=== PATIENT | female | born 1960 | race Caucasian/White ===

== ENCOUNTER 2016-04-22 16:23 | Outpatient (CLI) ==
[2016-04-07 13:44] VITALS: BMI 50.8
== END 2016-04-22 16:24 | disposition home or self-care (01) ==
LOC: CAR 16:23
PROVIDERS: ATTEND Nurse Practitioner Family
DX: G47.30 Sleep apnea, unspecified (principal)
CPT/HCPCS: 95811

== ENCOUNTER 2016-12-10 11:07 | Inpatient (IN) | payer OTHER ==
--- NOTE | 2016-12-10 11:21 | ED.PDOC ---
General ED Provider: Dr. VERITO FIERRO JR Chief Complaint: Chest Pain Stated Complaint: onset of left sided chest pain during nite--woke up sweating with pain to chest/left shoulder--pain lasted 4-5 hrs then went away--felt better and decided not to go to er--had seen md on thursday for upper resp sx and started on steroid and ear drops for ear infection--voice is hoarse--states lots of indigestion-[ End ]98.6 69 20 94% 138/84 08/20 took tramadol a nd ibuprofen Time Seen by Physician: 11:19 Mode of Arrival: Walk-In Information Source: Patient Exam Limitations: No limitations Primary Care Provider: AUBREY ESTEBAN Nursing and Triage Documentation Reviewed and Agree: No Review of Systems - Review Of Systems Constitutional: Reports: Diaphoresis, Malaise Eyes: Reports: No symptoms Ears, Nose, Mouth, Throat: Denies: Throat pain (HOARSE) Respiratory: Reports: No symptoms Cardiac: Reports: Chest pain GI: Reports: Abdominal pain (INDIGESTION) : Reports: No symptoms Musculoskeletal: Reports: Joint pain (SHOULDER) Skin: Reports: No symptoms Neurological: Reports: No symptoms Endocrine: Reports: No symptoms Hematologic/Lymphatic: Reports: No symptoms All Other Systems: Other Past Medical History - Past Medical History Endocrine: Reports: DM 2, Dyslipidemia Cardiovascular: Reports: Hypertension Respiratory: Reports: COPD Hematological: Reports: None Gastrointestinal: Reports: GERD Genitourinary: Reports: None Neuro/Psych: Reports: Anxiety, Depression Musculoskeletal: Reports: Arthritis Cancer: Reports: None Last Menstrual Period: menopause - Surgical History General Surgical History: Reports: Tubal ligation, (x2), Cholecystectomy, Other ( LASIK SURGERY, BULGING DISK IN BACK) - Family History Family History: Reports: Unknown - Social History Smoking Status: Former smoker Hx Substance Use: No Alcohol Screening: None Physical Exam - Physical Exam Appearance: Ill-appearing Interpretation - Radiology Interpretation Radiology Interpretation By: Radiologist Radiology Results: No acute changes Exam Interpreted: Portable CXR (prominent heart probable vac congestion) Critical Care Note - Critical Care Note Total Time (mins): 30 Course - Course Hematology/Chemistry: 12/10/16 11:51 12/10/16 11:51 Orders, Labs, Meds: Lab Review 12/10/16 12/10/16 11:20 11:51 WBC 10.64 H RBC 4.45 Hgb 13.4 Hct 39.9 MCV 89.7 MCH 30.1 MCHC 33.6 RDW Coeff of Taylor 13.3 Plt Count 242 Immature Gran % (Auto) 0.6 Neut % (Auto) 80.9 Lymph % (Auto) 13.2 Larue % (Auto) 3.9 Eos % (Auto) 0.8 Baso % (Auto) 0.6 Immature Gran # (Auto) 0.1 Neut # 8.6 H Lymph # 1.4 Larue # 0.4 Eos # 0.1 Baso # 0.1 D-Dimer (Manual) 896.55 Puncture Site Rr O2 Saturation 95.0 ABG pH 7.341 L ABG pCO2 47.7 H ABG pO2 81.0 L ABG HCO3 25.8 ABG Total CO2 27 ABG Base Excess 0 Flo Test + FiO2 % 21.0 Sodium 138 Potassium 4.3 Chloride 102 Carbon Dioxide 24 Anion Gap 16.3 BUN 19 H Creatinine 0.75 Estimated GFR (MDRD) 80.00 BUN/Creatinine Ratio 25.33 Glucose 136 H Calcium 9.5 Total Bilirubin 0.25 AST 24 ALT 31 Alkaline Phosphatase 72 Total Creatine Kinase 231 CK-MB (CK-2) 14.2 H* CK-MB (CK-2) % 6.71851 Troponin I < 0.0100 B-Natriuretic Peptide 26 Total Protein 7.7 Albumin 3.7 Globulin 4.0 Albumin/Globulin Ratio 0.93 Procalcitonin < 0.05 Orders Category Date Time Status ADMIT PATIENT INPATIENT .TO [facility] (MONITORED BED) ADMISSION 12/10/16 15: 33 Active ABG DRAW REQUEST Stat CARDIO 12/10/16 11:20 Completed EKG-(ED ONLY) Stat CARDIO 12/10/16 11:19 Completed EKG-(IP & OP ONLY) DAILY CARDIO 12/11/16 06:00 Ordered EKG-(IP & OP ONLY) DAILY CARDIO 12/12/16 06:00 Ordered EKG-(IP & OP ONLY) DAILY CARDIO 12/13/16 06:00 Ordered INTAKE & OUTPUT Q8HR CARE 12/10/16 15:34 Completed NPO REMINDER: IMAGING ONCE CARE 12/10/16 13:10 Active TELEMETRY MONITORING TELE CARE 12/10/16 15:37 Active VITAL SIGNS Q4HR CARE 12/10/16 15:33 Completed CARDIAC DIET DIETARY 12/10/16 Dinner Ordered ED DECISION SUPPORT ANALYST APPLIED .ONCE EMERGENCY 12/10/16 11:19 Active ED IV/MEDIPORT/POWERPORT .ONCE EMERGENCY 12/10/16 11:19 Active ABG Stat LAB 12/10/16 11:20 Completed B-TYPE NATRIURETIC PEPTIDE Stat LAB 12/10/16 11:51 Completed BLOOD CULTURE Stat LAB 12/10/16 11:51 Received CBC W/ AUTO DIFF DAILY@0600 LAB 12/11/16 06:00 Ordered CBC W/ AUTO DIFF DAILY@0600 LAB 12/12/16 06:00 Ordered CBC W/ AUTO DIFF DAILY@0600 LAB 12/13/16 06:00 Ordered CBC W/ AUTO DIFF DAILY@0600 LAB 12/14/16 06:00 Ordered CBC W/ AUTO DIFF DAILY@0600 LAB 12/15/16 06:00 Ordered CBC W/ AUTO DIFF DAILY@0600 LAB 12/16/16 06:00 Ordered CBC W/ AUTO DIFF DAILY@0600 LAB 12/17/16 06:00 Ordered CBC W/ AUTO DIFF DAILY@0600 LAB 12/18/16 06:00 Ordered CBC W/ AUTO DIFF DAILY@0600 LAB 12/19/16 06:00 Ordered CBC W/ AUTO DIFF DAILY@0600 LAB 12/20/16 06:00 Ordered CBC W/ AUTO DIFF DAILY@0600 LAB 12/21/16 06:00 Ordered CBC W/ AUTO DIFF DAILY@0600 LAB 12/22/16 06:00 Ordered CBC W/ AUTO DIFF DAILY@0600 LAB 12/23/16 06:00 Ordered CBC W/ AUTO DIFF DAILY@0600 LAB 12/24/16 06:00 Ordered CBC W/ AUTO DIFF DAILY@0600 LAB 12/25/16 06:00 Ordered CBC W/ AUTO DIFF DAILY@0600 LAB 12/26/16 06:00 Ordered CBC W/ AUTO DIFF DAILY@0600 LAB 12/27/16 06:00 Ordered CBC W/ AUTO DIFF DAILY@0600 LAB 12/28/16 06:00 Ordered CBC W/ AUTO DIFF DAILY@0600 LAB 12/29/16 06:00 Ordered CBC W/ AUTO DIFF DAILY@0600 LAB 12/30/16 06:00 Ordered CBC W/ AUTO DIFF Stat LAB 12/10/16 11:51 Completed COMPREHENSIVE METABOLIC PANEL DAILY@0600 LAB 12/11/16 06:00 Ordered COMPREHENSIVE METABOLIC PANEL DAILY@0600 LAB 12/12/16 06:00 Ordered COMPREHENSIVE METABOLIC PANEL DAILY@0600 LAB 12/13/16 06:00 Ordered COMPREHENSIVE METABOLIC PANEL DAILY@0600 LAB 12/14/16 06:00 Ordered COMPREHENSIVE METABOLIC PANEL DAILY@0600 LAB 12/15/16 06:00 Ordered COMPREHENSIVE METABOLIC PANEL DAILY@0600 LAB 12/16/16 06:00 Ordered COMPREHENSIVE METABOLIC PANEL DAILY@0600 LAB 12/17/16 06:00 Ordered COMPREHENSIVE METABOLIC PANEL DAILY@0600 LAB 12/18/16 06:00 Ordered COMPREHENSIVE METABOLIC PANEL DAILY@0600 LAB 12/19/16 06:00 Ordered COMPREHENSIVE METABOLIC PANEL DAILY@0600 LAB 12/20/16 06:00 Ordered COMPREHENSIVE METABOLIC PANEL DAILY@0600 LAB 12/21/16 06:00 Ordered COMPREHENSIVE METABOLIC PANEL DAILY@0600 LAB 12/22/16 06:00 Ordered COMPREHENSIVE METABOLIC PANEL DAILY@0600 LAB 12/23/16 06:00 Ordered COMPREHENSIVE METABOLIC PANEL DAILY@0600 LAB 12/24/16 06:00 Ordered COMPREHENSIVE METABOLIC PANEL DAILY@0600 LAB 12/25/16 06:00 Ordered COMPREHENSIVE METABOLIC PANEL DAILY@0600 LAB 12/26/16 06:00 Ordered COMPREHENSIVE METABOLIC PANEL DAILY@0600 LAB 12/27/16 06:00 Ordered COMPREHENSIVE METABOLIC PANEL DAILY@0600 LAB 12/28/16 06:00 Ordered COMPREHENSIVE METABOLIC PANEL DAILY@0600 LAB 12/29/16 06:00 Ordered COMPREHENSIVE METABOLIC PANEL DAILY@0600 LAB 12/30/16 06:00 Ordered COMPREHENSIVE METABOLIC PANEL Stat LAB 12/10/16 11:51 Completed CREATINE KINASE Q8H LAB 12/10/16 21:45 Ordered CREATINE KINASE Q8H LAB 12/11/16 05:45 Ordered CREATINE KINASE Stat LAB 12/10/16 11:51 Completed D-DIMER Stat LAB 12/10/16 11:51 Completed PROCALCITONIN Stat LAB 12/10/16 11:51 Completed SPUTUM CULTURE Stat LAB 12/10/16 11:21 Uncollected TROPONIN I Q8H LAB 12/10/16 21:45 Ordered TROPONIN I Q8H LAB 12/11/16 05:45 Ordered TROPONIN I Stat LAB 12/10/16 11:51 Completed 0.9 % Sodium Chloride [Saline Flush] MEDS 12/10/16 11:19 Active 1 syr IVF PRN PRN Acetaminophen [Tylenol] MEDS 12/10/16 15:33 Active 650 mg PO Q4H PRN Acetic Acid [Acetic Acid] MEDS 12/10/16 15:45 Active 4 drop OT DIRECTED Fluoxetine HCl [Prozac] MEDS 12/11/16 09:00 Active 20 mg PO DAILY Gabapentin [Neurontin] MEDS 12/10/16 17:00 Active 600 mg PO QID Lorazepam [Ativan] MEDS 12/10/16 21:00 Active 1 mg PO TID Montelukast Sodium [Singulair] MEDS 12/10/16 21:00 Active 10 mg PO BEDTIME Morphine Sulfate [Morphine 4 mg/ml Syringe] MEDS 12/10/16 11:42 Discontinued 4 mg IVP ONCE STA Multivitamin MEDS 12/11/16 09:00 Active 1 cap PO DAILY Ondansetron HCl/Pf [Zofran 4 mg/2 ml] MEDS 12/10/16 11:42 Discontinued 4 mg IVP ONCE STA Prednisone MEDS 12/11/16 08:00 Active 40 mg PO DAILYWM Ranitidine HCl [Zantac] MEDS 12/10/16 17:00 Active 150 mg PO BIDAC Sodium Chloride 0.9% [Sodium Chloride] 1,000 ml MEDS 12/10/16 16:00 Active IV 75 mls/hr Tramadol HCl [Ultram] MEDS 12/10/16 15:37 Active 100 mg PO Q6H PRN RESUSCITATION STATUS Routine OTHERS 12/10/16 15:33 Ordered CHEST, 1V AP ONLY Stat RADS 12/10/16 11:[address] CHEST PE PROTOCOL Stat RADS 12/10/16 13:09 Completed Medications Generic Name Dose Route Start Last Admin Trade Name Freq PRN Reason Stop Dose Admin Acetaminophen 650 mg 12/10/16 15:33 Tylenol PO Q4H PRN Mild Pain Fluoxetine HCl 20 mg 12/11/16 09:00 Prozac PO DAILY JIMENEZ Furosemide 40 mg 12/11/16 06:30 Lasix Tab PO QDAC JIMENEZ Gabapentin 600 mg 12/10/16 17:00 12/10/16 20:20 Neurontin PO 600 mg QID JIMENEZ Administration HCTZ/Losartan Potassium 2 tab 12/11/16 09:00 Hyzaar 50-12.5 Mg Tab PO DAILY JIMENEZ Sodium Chloride 1,000 mls @ 75 mls/hr 12/10/16 16:00 12/10/16 17:51 Sodium Chloride IV 75 mls/hr .[id number] JIMENEZ Administration Ibuprofen 800 mg 12/10/16 17:30 12/10/16 18:38 Motrin PO 800 mg TIDWM JIMENEZ Administration Loratadine 10 mg 12/10/16 16:39 Claritin PO DAILY PRN ALLERGIES Lorazepam 1 mg 12/10/16 21:00 12/10/16 20:20 Ativan PO 1 mg TID JIMENEZ Administration Metoprolol Succinate 100 mg 12/11/16 09:00 Toprol Xl PO DAILY [facility] Montelukast Sodium 10 mg 12/10/16 21:00 12/10/16 20:24 Singulair PO Not Given BEDTIME [facility], [facility] Multivitamins 1 cap 12/11/16 09:00 Multivitamin PO DAILY [facility], [facility] Non-Formulary Medication 4 drop 12/10/16 15:45 Acetic Acid [Acetic Acid] OT DIRECTED [facility] Prednisone 40 mg 12/11/16 08:00 Prednisone PO DAILYWM [facility] Quetiapine Fumarate 300 mg 12/10/16 21:00 12/10/16 20:20 Seroquel PO 300 mg BEDTIME JIMENEZ Administration Ranitidine HCl 150 mg 12/10/16 17:00 12/10/16 18:02 Zantac PO 150 mg BIDAC JIMENEZ Administration Sodium Chloride 1 syr 12/10/16 11:19 12/10/16 12:26 Saline Flush IVF 1 syr PRN PRN Administration To flush IV Topiramate 25 mg 12/11/16 09:00 Topamax PO DAILY [facility] Tramadol HCl 100 mg 12/10/16 15:37 Ultram PO Q6H PRN pain Discontinued Medications Generic Name Dose Route Start Last Admin Trade Name Freq PRN Reason Stop Dose Admin Morphine Sulfate 4 mg 12/10/16 11:42 12/10/16 12:29 Morphine 4 Mg/Ml Syringe IVP 12/10/16 11:43 4 mg ONCE STA Administration Ondansetron HCl 4 mg 12/10/16 11:42 12/10/16 12:27 Zofran 4 Mg/2 Ml IVP 12/10/16 11:43 4 mg ONCE STA Administration Vital Signs: Temp Pulse Resp BP Pulse Ox 12/10/16 11:07 98.6 F 69 20 138/84 94 L SRINIVASA Risk Score SRINIVASA Risk Score: Risk Score Odds of by 30D 0 0.1 (0.1-0.2) 1 0.3 (0.2-0.3) 2 0.4 (0.3-0.5) 3 0.7 (0.6-0.9) 4 1.2 (1.0-1.5) 5 2.2 (1.9-2.6) 6 3.0 (2.5-3.6) 7 4.8 (3.8-6.1) Departure - Departure Time of Disposition: 17:00 Disposition: ADMITTED INPATIENT Discharge Problem: Chest pain Condition: Stable Pt referred to PMD for follow-up: No (HOSPITALIST) Allergies/Adverse Reactions: Allergies Latex, Natural Rubber Adverse Reaction (Verified 12/10/16 11:18) metformin Adverse Reaction (Verified 12/10/16 11:19) Penicillins Adverse Reaction (Verified 12/10/16 11:18) Home Medications: Ambulatory Orders Fluoxetine HCl [Prozac] 20 mg PO DAILY 08/10/13 Gabapentin 600 mg PO QID 08/10/13 Ibuprofen 800 mg PO TID 08/10/13 Losartan/Hydrochlorothiazide [Losartan-Hctz 100-25 mg Tab] 1 each PO DAILY 08/10 Metoprolol Succinate 100 mg PO DAILY 08/10/13 Multivitamin 1 cap PO DAILY 08/10/13 Quetiapine Fumarate [Seroquel Xr] 300 mg PO BEDTIME 08/10/13 Ranitidine HCl [Zantac] 150 mg PO BIDAC 08/10/13 Tramadol HCl [Ultram] 100 mg PO Q6H 08/10/13 Furosemide [Lasix] 40 mg PO DAILY 04/07/16 Lorazepam 1 mg PO TID 04/07/16 Montelukast Sodium [Singulair] 10 mg PO BEDTIME 04/07/16 Topiramate [Topamax] 25 mg PO DAILY 04/07/16 Acetic Acid 4 drop OT DIRECTED 12/10/16 Loratadine 10 mg PO DIRECTED 12/10/16 Prednisone 40 mg PO DAILYWM 12/10/16
[2016-12-10] MEDS ORDERED: ZOFRAN 4 MG/2 ML IVP STA (11:42)
[2016-12-10] MEDS ORDERED: MORPHINE 4 MG/ML SYRINGE IVP STA (11:42)
[2016-12-10 11:46] LABS: ABG BASE EXCESS 0 (-2.0-2.0); ABG HCO3 25.8 (22.0-26.0); ABG PCO2 47.7 mmHg (35-45); ABG PH 7.341 (7.35-7.45); ABG TCO2 27 (22.0-28.0)
[2016-12-10 12:00] LABS: BASOPHILS # (AUTO) 0.1 K/uL (0-0.2); BASOPHILS % (AUTO) 0.6 % (0.0-3.0); EOSINOPHILS # (AUTO) 0.1 K/ul (0.0-0.7); EOSINOPHILS % (AUTO) 0.8 % (0.0-7.0); HEMATOCRIT 39.9 % (37.0-47.0); HEMOGLOBIN 13.4 g/dl (12.0-16.0); IMMATURE GRANULOCYTE % (AUTO) 0.6 % (0.0-5.0); LYMPHOCYTES # (AUTO) 1.4 K/uL (0.60-3.4); LYMPHOCYTES % (AUTO) 13.2 (10.0-50.0); MEAN CORPUSCULAR HEMOGLOBIN 30.1 pg (27.0-31.0); MEAN CORPUSCULAR HGB CONC 33.6 (31.8-35.4); MEAN CORPUSCULAR VOLUME 89.7 fl (81.0-99.0); MONOCYTES # (AUTO) 0.4 K/uL (0.4-2.0); MONOCYTES % (AUTO) 3.9 (0-10); NEUTROPHILS # (AUTO) 8.6 K/ul (2.0-6.9); NEUTROPHILS % (AUTO) 80.9; PLATELET COUNT 242 10^3/uL (140-440); RED BLOOD COUNT 4.45 10^6/ul (4.20-5.40); WHITE BLOOD COUNT 10.64 K/ul (4.6-10.2)
--- NOTE | 2016-12-10 12:19 | DI ---
EXAM: CHEST FRONTAL VIEW HISTORY: Chest pain and diaphoresis. COMPARISON: 03/19/2011 FINDINGS: None limited portable exam reveals prominent heart size which appears stable. It would b e difficult to exclude mild pulmonary vascular congestion and subtle interstitial edema. There is n o lobar consolidation or visible pleural fluid. No pneumothorax. IMPRESSION: Limited exam reveals prominent heart size and probable mild pulmonary vascular congestion.
[2016-12-10 12:52] LABS: ALANINE AMINOTRANSFERASE 31 U/L (12-78); ALBUMIN 3.7 g/dL (3.4-5.0); ALBUMIN/GLOBULIN RATIO 0.93; ALKALINE PHOSPHATASE 72 U/L (42-98); ANION GAP 16.3; ASPARTATE AMINO TRANSFERASE 24 U/L (15-37); BILIRUBIN,TOTAL 0.25 mg/dL (0.00-1.20); BLOOD UREA NITROGEN 19 mg/dL (7-18); BUN/CREATININE RATIO 25.33; CALCIUM 9.5 mg/dL (8.2-10.2); CARBON DIOXIDE 24 mmol/L (21-32); CHLORIDE 102 mmol/L (98-107); CREATINE KINASE 231 U/L; CREATININE 0.75 mg/dL (0.60-1.30); GLUCOSE 136 mg/dL (70-110); POTASSIUM 4.3 mmol/L (3.5-5.10); SODIUM 138 mmol/L (136-145); TOTAL PROTEIN 7.7 g/dL (6.4-8.2)
[2016-12-10 12:56] LABS: CREATINE KINASE MB 14.2 ng/ml (0.0-3.6)
--- NOTE | 2016-12-10 15:00 | CT ---
EXAM: CT Angiogram Chest. HISTORY: Chest pain. Elevated D-dimer. COMPARISON: Radiograph earlier the same day. TECHNIQUE: Multiple axial images of the chest were obtained following intravenous administration of 125 mL of Omnipaque 350, low osmolar. Images were reformatted in the sagittal and coronal plane. 3-D and maximum intensity projection reformatted images were created on an independent workstation. FINDINGS: No lymphadenopathy identified. Heart is at the upper limits normal in size. No pericard ial effusion identified. Atherosclerotic calcifications present. No pulmonary arterial filling defects are seen. Areas of subsegmental atelectasis noted in both tiburcio gs, greatest in the left lower lobe. No pleural effusion or pneumothorax identified. Limited images of the upper abdomen demonstrate no acute finding. Degenerative changes are present in the spine. IMPRESSION: No evidence for pulmonary embolus or other acute abnormality of the chest.
[2016-12-10] MEDS ORDERED: TYLENOL PO PRN (15:33)
[2016-12-10] MEDS ORDERED: ACETIC ACID OT SCH (15:45)
[2016-12-10] MEDS ORDERED: NON-FORMULARY MEDICATION (Loratadine [Loratadine] 10 MG) PO SCH (15:45)
[2016-12-10] MEDS ORDERED: CLARITIN PO PRN (16:39)
[2016-12-10 17:50] VITALS: BMI 50.5
[2016-12-10] MEDS: SODIUM CHLORIDE 1,000 ML IV SCH (17:51)
[2016-12-10] MEDS: ZANTAC PO SCH (18:02)
[2016-12-10] MEDS: NEURONTIN PO SCH ×2 (18:02→20:20)
[2016-12-10] MEDS: MOTRIN PO SCH (18:38)
[2016-12-10] MEDS: SEROQUEL PO SCH (20:20)
[2016-12-10] MEDS: ATIVAN PO SCH (20:20)
[2016-12-10] MEDS: SINGULAIR PO SCH (20:24)
[2016-12-10] MEDS ORDERED: NON-FORMULARY MEDICATION (Ibuprofen [Ibuprofen] 800 MG) PO SCH ×22 (21:00)
[2016-12-10] MEDS ORDERED: QUETIAPINE FUMARATE 300 MG PO SCH (21:00)
[2016-12-10] MEDS: ULTRAM PO PRN (21:32)
[2016-12-10 22:20] LABS: CREATINE KINASE 188 U/L
[2016-12-10 22:35] LABS: CREATINE KINASE MB 9.9 ng/ml (0.0-3.6)
[2016-12-11] MEDS: ZANTAC PO SCH ×2 (05:30→17:14)
[2016-12-11] MEDS: SODIUM CHLORIDE 1,000 ML IV SCH ×2 (05:30→20:49)
[2016-12-11] MEDS: LASIX TAB PO SCH (05:31)
[2016-12-11 06:00] LABS: BASOPHILS # (AUTO) 0.1 K/uL (0-0.2); BASOPHILS % (AUTO) 0.8 % (0.0-3.0); EOSINOPHILS # (AUTO) 0.2 K/ul (0.0-0.7); EOSINOPHILS % (AUTO) 2.3 % (0.0-7.0); HEMOGLOBIN 12.9 g/dl (12.0-16.0); IMMATURE GRANULOCYTE % (AUTO) 0.4 % (0.0-5.0); LYMPHOCYTES # (AUTO) 2.9 K/uL (0.60-3.4); MEAN CORPUSCULAR HEMOGLOBIN 29.7 pg (27.0-31.0); MEAN CORPUSCULAR HGB CONC 32.3 (31.8-35.4); MEAN CORPUSCULAR VOLUME 92.2 fl (81.0-99.0); MONOCYTES % (AUTO) 10.9 (0-10); NEUTROPHILS # (AUTO) 5.3 K/ul (2.0-6.9); NEUTROPHILS % (AUTO) 55.6; PLATELET COUNT 215 10^3/uL (140-440); RED BLOOD COUNT 4.34 10^6/ul (4.20-5.40); WHITE BLOOD COUNT 9.54 K/ul (4.6-10.2)
[2016-12-11 06:23] LABS: ALBUMIN 3.4 g/dL (3.4-5.0); ALBUMIN/GLOBULIN RATIO 0.92; ANION GAP 16.9; BILIRUBIN,TOTAL 0.2 mg/dL (0.00-1.20); BUN/CREATININE RATIO 30.55; CALCIUM 9.1 mg/dL (8.2-10.2); CREATININE 0.72 mg/dL (0.60-1.30); POTASSIUM 3.9 mmol/L (3.5-5.10); TOTAL PROTEIN 7.1 g/dL (6.4-8.2)
[2016-12-11 07:05] LABS: TROPONIN I 0.014 ng/ml (0.0000-0.4000)
[2016-12-11 07:07] LABS: CREATINE KINASE MB 7.8 ng/ml (0.0-3.6)
[2016-12-11] MEDS ORDERED: NON-FORMULARY MEDICATION (Topiramate [Topamax] 25 MG) PO SCH (09:00)
[2016-12-11] MEDS ORDERED: NON-FORMULARY MEDICATION (Metoprolol Succinate [Metoprolol Succinate] 100 MG) PO SCH (09:00)
[2016-12-11] MEDS ORDERED: NON-FORMULARY MEDICATION (Losartan/Hydrochlorothiazide [Losartan-Hctz 100-25 Mg Tab] 1 EAC PO SCH (09:00)
[2016-12-11] MEDS ORDERED: LASIX TAB PO SCH (09:00)
[2016-12-11] MEDS: TOPAMAX PO SCH (09:04)
[2016-12-11] MEDS: HYZAAR 50-12.5 MG TAB PO SCH (09:05)
[2016-12-11] MEDS: MULTIVITAMIN PO SCH (09:05)
[2016-12-11] MEDS: TOPROL XL PO SCH (09:05)
[2016-12-11] MEDS: MOTRIN PO SCH ×3 (09:05→17:13)
[2016-12-11] MEDS: PROZAC PO SCH (09:06)
[2016-12-11] MEDS: NEURONTIN PO SCH ×4 (09:06→20:44)
[2016-12-11] MEDS: PREDNISONE PO SCH (09:06)
[2016-12-11] MEDS: ATIVAN PO SCH ×3 (09:06→20:46)
[2016-12-11 09:18] LABS: CHOL/HDL RATIO 5.7 (4.5-5.5)
[2016-12-11] MEDS: ULTRAM PO PRN (15:17)
[2016-12-11] MEDS: SINGULAIR PO SCH (20:44)
[2016-12-11] MEDS: SEROQUEL PO SCH (20:46)
[2016-12-12 05:39] VITALS: TEMP 97
[2016-12-12 05:43] LABS: BASOPHILS # (AUTO) 0.1 K/uL (0-0.2); BASOPHILS % (AUTO) 0.6 % (0.0-3.0); EOSINOPHILS # (AUTO) 0.3 K/ul (0.0-0.7); EOSINOPHILS % (AUTO) 2.2 % (0.0-7.0); HEMATOCRIT 38.7 % (37.0-47.0); HEMOGLOBIN 12.8 g/dl (12.0-16.0); IMMATURE GRANULOCYTE % (AUTO) 0.3 % (0.0-5.0); LYMPHOCYTES # (AUTO) 3.5 K/uL (0.60-3.4); LYMPHOCYTES % (AUTO) 30.2 (10.0-50.0); MEAN CORPUSCULAR HEMOGLOBIN 30.1 pg (27.0-31.0); MEAN CORPUSCULAR HGB CONC 33.1 (31.8-35.4); MEAN CORPUSCULAR VOLUME 91.1 fl (81.0-99.0); MONOCYTES # (AUTO) 1.2 K/uL (0.4-2.0); MONOCYTES % (AUTO) 10.1 (0-10); NEUTROPHILS # (AUTO) 6.5 K/ul (2.0-6.9); NEUTROPHILS % (AUTO) 56.6; PLATELET COUNT 228 10^3/uL (140-440); RED BLOOD COUNT 4.25 10^6/ul (4.20-5.40); WHITE BLOOD COUNT 11.43 K/ul (4.6-10.2)
[2016-12-12] MEDS: LASIX TAB PO SCH (05:45)
[2016-12-12] MEDS: ZANTAC PO SCH (05:45)
[2016-12-12 06:12] LABS: ALBUMIN 3.4 g/dL (3.4-5.0); ALBUMIN/GLOBULIN RATIO 0.92; ANION GAP 18.7; BILIRUBIN,TOTAL 0.27 mg/dL (0.00-1.20); BUN/CREATININE RATIO 31.88; CREATININE 0.69 mg/dL (0.60-1.30); POTASSIUM 3.7 mmol/L (3.5-5.10); TOTAL PROTEIN 7.1 g/dL (6.4-8.2)
[2016-12-12] MEDS: TOPROL XL PO SCH (10:00)
[2016-12-12] MEDS: TOPAMAX PO SCH (10:00)
[2016-12-12] MEDS: PROZAC PO SCH (10:00)
[2016-12-12] MEDS: MOTRIN PO SCH ×2 (10:00→12:36)
[2016-12-12] MEDS: MULTIVITAMIN PO SCH (10:00)
[2016-12-12] MEDS: SODIUM CHLORIDE 1,000 ML IV SCH (10:00)
[2016-12-12] MEDS: ATIVAN PO SCH (10:00)
[2016-12-12] MEDS: NEURONTIN PO SCH ×2 (10:00→12:46)
[2016-12-12] MEDS: PREDNISONE PO SCH (10:00)
[2016-12-12] MEDS: HYZAAR 50-12.5 MG TAB PO SCH (10:00)
--- NOTE | 2016-12-12 10:25 | CONS ---
DATE OF CONSULTATION: 12/11/16 REASON FOR CONSULTATION: Chest pain HISTORY OF PRESENT ILLNESS: The patient is a 56 year old white female came to the emergency room with cough and congestion with couple of weeks duration. The patient was awakened with left upper chest pain radiating down the left shoulder described as pressure tightness and heaviness. Awakened with pain and diaphoresis, mild shortness of breath but has been receiving steroids and antibiotics. Took ibuprofen and Tramadol pain lasted 4-5 hours. Had similar episode 04-11-16. Had Dobutamine stress by Dr. Hernandez with negative findings. LVEF .50%. Chest x-ray in the emergency room showed possibility of venous congestion with prominent heart size. The patient's BNP was 22. The patient had Dobutamine stress echo done which was negative in March 2016 at [facility]. The patient doesn't have any exertion chest discomfort. REVIEW OF SYSTEMS: CONSTITUTIONAL: No night sweats. Fatigue. No fever or chills. HEENT: Eyes: No visual changes. No eye pain. No eye discharge. ENT: No sinus drainage. No epistaxis. No sinus pain. No sore throat. No odynophagia. No ear pain. No congestion. RESPIRATORY: Cough and congestion. No hemoptysis. Shortness of breath on exertion mainly last couple of weeks. CARDIOVASCULAR: No angina symptoms. No CHF symptoms. No atypical chest pain for CAD. No palpitations. No orthopnea. Chest pain with cough, pleuritic type. No exertional chest discomfort. No PND. No Orthopnea. GASTROINTESTINAL: No abdominal pain. No nausea or vomiting. No diarrhea or constipation. No hematemesis. No hematochezia. GENITOURINARY: No urgency. No frequency. No dysuria. No hematuria. No obstructive symptoms. No discharge. No pain. No significant abnormal bleeding. MUSCULOSKELETAL: No musculoskeletal pain. No joint swelling. NEUROLOGICAL: No headache. No neck pain. No syncope. No seizures. No dizziness. PSYCHIATRIC: Not anxious. No depression. No suicidal thoughts. No homicidal thoughts. SKIN: No rash. No lesions. No wounds. ENDOCRINE: No unexplained weight loss. No weight gain. HEMATOLOGIC/LYMPHATIC: No anemia. No purpura. No petechiae. No prolonged or excessive bleeding. No palpable lymph nodes. MEDICATIONS: Loratadine 10mg PO daily Prednisone 40mg PO daily Acetic acid 4 drop OT as directed Furosemide 40mg PO daily Seroquel 300mg PO bedtime Gabapentin 600mg four times a day Tramadol 100mg PO Q 6 hours Topiramate 25mg PO daily Zantac 150mg Po twice a day Multivitamin one capsule PO daily Singulair 10mg Po bedtime Metoprolol 100mg Po daily Losartan/hydrochlorothiazide 100-25mg PO daily Lorazepam 1mg Po three times a day Ibuprofen 800mg Po three times a day Prozac 20mg Po daily ALLERGIES: Latex Natural rubber Metformin Penicillin PAST MEDICAL HISTORY/PAST SURGICAL HISTORY: Dyslipidemia COPD Diabetes Mellitus, type 2 GERD Arthritis Degenerative disc disease-spine Disc bulge-spine Morbid obesity (BMI 50.7) Depression-anxiety OCD Cholecystectomy Tubal ligation x2 Lasik surgery Cataract extraction. SOCIAL/PERSONAL/FAMILY HISTORY: The patient is . Former smoker non since 2014. No alcohol use. PHYSICAL EXAMINATION: GENERAL: The patient is oriented to time, place and person. VITAL SIGNS: Temperature 98, pulse 80, respiratory rate 15, blood pressure 130/ 80. HEENT: Head normocephalic, atraumatic. Eyes: Extraocular muscles are intact. Pupils are equal, round and reactive to light and accommodation. Ears: No lesions. Nose appeared normal. Throat: No exudate or erythema. NECK: Supple. No JVD, no carotid bruit. No lymphadenopathy or thyromegaly. LUNGS: Decreased breath sounds with mild wheeze. Clear to auscultation. Percussion note normal. Chest symmetrical. HEART: S1, S2, no S3. No murmurs. No cyanosis or clubbing. No ascites. Pulses: Dorsalis pedis and posterior tibial pulses +1 to +2 both sides. EKG sinus rhythm, No acute changes. ABDOMEN: Soft. Nontender. Bowel sounds active. No CVA tenderness. No mass felt. EXTREMITIES: No edema. Full range of motion of all extremities, equal. NEUROLOGIC: No focal deficit. Cranial nerves II through XII are grossly intact. No headache, no double vision or headache. SKIN: Not dry. Intact. Turgor - normal. LYMPHATIC: No palpable lymph nodes/no lymphedema. MUSCULOSKELETAL: Normal joints with no swelling. Muscle tone is normal. LABS: CK-MB borderline positive first anabaptist with negative troponin, BNP 22 which is normal. WBC 9.54, hgb 12.9, hct 40.0, plt count 215, sodium 145, potassium 3.9, chloride 101, bicarb 31, BUN 22, creatinine 0.72 and glucose 92. EGFR 84. ASSESSMENT: 1. Chest pain seems to be pleuritic 2. No evidence of congestive heart failure clinically as well as BNP which is 22 3. Obesity 4. Acute bronchitis with pleuritic pain 5. Recent treatment Upper respiratory infection, Prednisone (Corina Vo) 6. Otitis- eardrops (Corina Vo) [facility] 7. Diabetes Mellitus type 2 8. Dyslipidemia RECOMMENDATIONS: 1. Will do echocardiogram to evaluate LV function 2. The patient had CT of chest done which did not pulmonary embolism or CHF 3. Mainly the patient's problem is acute bronchitis 4. Agreed with steroids and antibiotics 5. Coronary artery disease and risk factors discussed with the patient 6. The patient is not will to have at present time any Dobutamine or chemical stress test and don't see any need for it. Dobutamine stress test/chemical stress test was negative just 6-8 months ago. 7. Present symptoms pointing more towards acute bronchitis/pneumonitis with pleuritic pain 8. Agreed with telemetry 9. Agreed with Lipids, labs and thyroid Will continue to follow. Thanks for referral. NAVJOT
[2016-12-12] MEDS: ULTRAM PO PRN (10:41)
[2016-12-12 10:44] VITALS: BP 134/74
[2016-12-12] MEDS ORDERED: ZOCOR PO SCH (21:00)
[2016-12-13] MEDS ORDERED: PREDNISONE PO SCH (08:00)
--- NOTE | 2016-12-16 13:38 | ECHO2D ---
Date of Exam: 12/12/16 Ordering Physician: HOSPITALIST--JOHNNY LYNNE Room # : 118 Reason for Echo: CHEST PAIN, HYPERTENSION, COPD, DM, INGRID M-Mode Normal Adult Results LV Dimensions Normal Adult Results AoV Opening excursions >1.6 >1.6 LVEDD-base- 3.5-5.8 4.8 Ao root dimensions 2.0-3.7 2.9 LVESD-base- 3.1-4.6 L. Atrium dimensions 1.9-3.8 4.7 Post. Wall thickness 0.8-1.1 1.3 IV septum (thickness) 0.7-1.2 1.4 Post. Wall excursion 0.72-1.3 NORMAL Septal motion NORMAL Systolic motion R. Ventricular cavity 1.5-2.0 NORMAL LVEF 60% 74% Paradoxical septal wall motion NORMAL 2-D : NORMAL LEFT VENTRICULAR CONTRACTILITY, NORMAL VALVES--NO EFFUSION, NO THROMBUS, ENLARGED LEFT ATRIAL CAVITY--CLARICE LEFT VENTRICLE SIZE M-MODE: MV: NORMAL AV: NORMAL TV: NORMAL PV: CHAMBER SIZE: ENLARGED LEFT ATRIAL CAVITY WALL MOTION: NORMAL PERICARDIUM: NORMAL INTERPRETATION: 1. LEFT VENTRICULAR HYPERTROPHY WITH ENLARGED LEFT ATRIAL CAVITY 2. NORMAL LEFT VENTRICULAR CONTRACTILITY 3. NORMAL VALVES MTDD
--- NOTE | 2016-12-18 12:58 | CONS ---
DATE OF SERVICE: 12/12/16 CONSULT FOLLOWUP SUBJECTIVE: The patient is a 56 year old white female seen on consultation for evaluation of chest pain. The patient doesn't have any chest pain at present time. She has mild cough with congestion. Pleuritic type of chest pain yesterday. REVIEW OF SYSTEMS: CONSTITUTIONAL: No night sweats. No fatigue, malaise, lethargy. No fever or chills. HEENT: Eyes: No visual changes. No eye pain. No eye discharge. ENT: No runny nose. No epistaxis. No sinus pain. No sore throat. No odynophagia. No ear pain. No congestion. RESPIRATORY: Cough and congestion. No hemoptysis. CARDIOVASCULAR: No angina symptoms. No CHF symptoms. No atypical chest pain for CAD. No palpitations. No shortness of breath. No PND. GASTROINTESTINAL: No abdominal pain. No nausea or vomiting. No diarrhea or constipation. No hematemesis. No hematochezia. GENITOURINARY: No urgency. No frequency. No dysuria. No hematuria. No obstructive symptoms. No discharge. No pain. No significant abnormal bleeding. MUSCULOSKELETAL: No musculoskeletal pain. No joint swelling. No arthritis. NEUROLOGICAL: No headache. No neck pain. No syncope. No seizures. No dizziness. PSYCHIATRIC: Not anxious. No depression. No suicidal thoughts. No homicidal thoughts. SKIN: No rash. No lesions. No wounds. ENDOCRINE: No unexplained weight loss. No weight gain. HEMATOLOGIC/LYMPHATIC: No anemia. No purpura. No petechiae. No prolonged or excessive bleeding. No palpable lymph nodes. PHYSICAL EXAMINATION: GENERAL: The patient is oriented to time, place and person. VITAL SIGNS: Temperature 97, pulse 60, respiratory rate 20, blood pressure 100/ 60 and pulse ox 95%. HEENT: Head normocephalic, atraumatic. Eyes: Extraocular muscles are intact. Pupils are equal, round and reactive to light and accommodation. Ears: No lesions. Nose appeared normal. Throat: No exudate or erythema. NECK: Supple. No JVD, no carotid bruit. No lymphadenopathy or thyromegaly. LUNGS: Decreased breath sounds with mild wheeze. Percussion note normal. Chest symmetrical. HEART: S1, S2, no S3. No murmurs. No cyanosis or clubbing. No ascites. Pulses: Dorsalis pedis and posterior tibial pulses +1 to +2 both sides. ABDOMEN: Soft. Nontender. Bowel sounds active. No CVA tenderness. No mass felt. EXTREMITIES: No edema. Full range of motion of all extremities, equal. NEUROLOGIC: No focal deficit. Cranial nerves II through XII are grossly intact. No headache, no double vision or headache. SKIN: Not dry. Intact. Turgor - normal. LYMPHATIC: No palpable lymph nodes/no lymphedema. MUSCULOSKELETAL: Normal joints with no swelling. Muscle tone is normal. LABS: Cardiac markers are negative. BNP 26 normal, T4 TSH normal, Hgb 12.8, hct 38, WBC 11,000 normal differential. ASSESSMENT: 1. Chest pain, seems to be non-cardiac, pleuritic type 2. Sleep apnea 3. History of smoking 4. Chronic lung disease 5. Morbid obesity RECOMMENDATIONS: 1. Risk factors for coronary artery disease discussed and how to modify them 2. The patient's chest pain doesn't seem to be cardiac 3. The patient's records reviewed from one of the [facility] where she had Dobutamine stress echo done which was reported as normal 4. The patient's echocardiogram this morning showed LVH borderline with enlarged LA cavity with normal LV contractility and normal valves 5. Discussed all the reports with her. 6. The patient's cardiovascular status is stable 7. Patient has sleep apnea and advised to continue CPAP 8. Counseling for diet needs to be done 9. Lipid profile unknown, pending CONDITION: Stable. MTDD
--- NOTE | 2016-12-24 09:48 | HP ---
DATE OF SERVICE: 12/10/16 CHIEF COMPLAINT: Chest pain. HISTORY OF PRESENT ILLNESS: This is a 56 year old female, morbidly obese, who came to the emergency room with left sided chest tightness, chest pain. She woke up with sweating and pain to the left side of the chest. The pain was present for four to five hours and then went away and got better. She had some shortness of breath and has been taking some steroids for an upper respiratory infection. Voice is hoarse. As the patient was hurting in the middle of the chest and radiating to the left arm, she came to the emergency room for the evaluation. The patient was seen by Dr. Whiting in the emergency room. Initial evaluation showed the white count 10.64, D-Dimer 896, ABG showed pH of 7.34, PCO2 47.7, PO2 81, CKMB 14.2, BNP 26. CT of the chest was done which showed no evidence of pulmonary embolism. In view of the patient's history, age and chest pain, the patient was admitted to the hospital for the shortness of breath and chest pain and to rule out acute coronary syndrome. Chest x-ray does show pulmonary congestion. REVIEW OF SYSTEMS: CONSTITUTIONAL: No fever, no chills. HEENT: Normal. ENDOCRINE: No weight gain; no weight loss. CVS: Chest pain. No PND, no orthopnea. Shortness of breath. No PND, no orthopnea. RESPIRATORY: No cough, no congestion. No hemoptysis. GI: No nausea, no vomiting. No abdominal pain. No melena. : No hematuria. No polyuria. MUSCULOSKELETAL: No joint swelling. PSYCHIATRIC: Not anxious. No depression. No suicidal thoughts. No homicidal thoughts. SKIN: Intact, no open lesions. PAST MEDICAL HISTORY: Hypertension COPD Sleep apnea on C-PAP Osteoarthritis DJD of the spine Depression Anxiety Hypothyroidism PAST SURGICAL HISTORY: Cholecystectomy C- Section Cataract surgery FAMILY HISTORY: Significant for diabetes and CABG, cataract surgery, Lasix surgery. PERSONAL HISTORY: Did smoke, quit two years ago. Goes to Psychiatrist. MEDICATIONS: Ibuprofen, Ultram, Prozac, Gabapentin, Seroquel, Multivitamin, Metoprolol, Zantac, Losartan, Lorazepam, Singulair, Lasix, Topamax, Prednisone, Acetic Acid, Loratadine. ALLERGIES: Latex, natural rubber, Metformin and Penicillin. PHYSICAL EXAMINATION: GENERAL: Morbidly obese lady sitting in the bed and not in any distress. V/S: Blood pressure 138/84, respiratory rate 20, heart rate 67, saturation 94 on 2 liters, Temperature 98.6. HEENT: Atraumatic, normocephalic. No scleral icterus. Pallor positive. Mucosa dry. NECK: Supple. No JVD, no bruit. No lymphadenopathy. No thyromegaly. HEART: S1, S2 normal. No murmur. No cyanosis or clubbing. No ascites. LUNGS: Decreased and some crackles. No rales or rhonchi. ABDOMEN: Soft, nontender. Bowel sounds are active. No CVA tenderness. No rigidity or guarding. EXTREMITIES: No cyanosis, clubbing or pedal edema. MUSCULOSKELETAL: Normal joints, no swelling. SKIN: Intact; no open lesions. LYMPHATIC: No lymph nodes palpable. LABS: Sodium 138, potassium 4.3, chloride 102, bicarb 24, BUN 19, creatinine 0.75, glucose 136, CKMB 14.2, white count 10.64, hemoglobin 13.4, hematocrit 39.6, platelet count 242. ASSESSMENT: 1. CHEST PAIN, RULE OUT ACUTE CORONARY SYNDROME 2. SHORTNESS OF BREATH SECONDARY TO THE UPPER RESPIRATORY VS RULE OUT CHF 3. HYPERTENSION 4. DYSLIPIDEMIA 5. MORBID OBESITY 6. SLEEP APNEA WITH C-PAP 7. FAMILY HISTORY OF CORONARY ARTERY DISEASE 8. HISTORY OF NICOTINE USE 9. ELEVATED CKMB PLAN: 1. Admit the patient to the regular floor. 2. CBC, CMP today and daily. 3. Cardiac enzymes and Troponins. 4. Sputum culture. 5. Lasix. 6. Prednisone 40 mg p.o. daily. 7. Continue home medications. 8. Daily I & O's. 9. Will follow up with the patient in daily rounds. TIME SPENT: MORE THAN 70 minutes MTDD
--- NOTE | 2016-12-24 10:01 | PN ---
DATE OF SERVICE: 12/11/16 SUBJECTIVE: The patient was admitted with chest pain and shortness of breath. The chest pain got some better today, but she still gets the shortness of breath with exertion. She is having some cough and congestion. REVIEW OF SYSTEMS: CONSTITUTIONAL: No fever, no chills. HEENT: Normal. ENDOCRINE: No weight gain, no weight loss. CVS: No angina symptoms. No CHF symptoms. No palpitations. Chest pain. Shortness of breath. No PND, no orthopnea. RESPIRATORY: Cough and congestion, no hemoptysis. GI: No nausea, no vomiting. No abdominal pain. : No hematuria. No polyuria. MUSCULOSKELETAL:. No joint swelling. PSYCHIATRIC: Not anxious. No depression. No suicidal thoughts. No homicidal thoughts. SKIN: Intact. No rash. PHYSICAL EXAMINATION: GENERAL: Morbidly obese lady. V/S: Blood pressure 104/54, respiratory rate 20, heart rate 71, temperature 97.0 , saturation 94 on 2 liters. HEENT: Normocephalic, atraumatic. Mucosa dry. Pallor positive. No icterus. NECK: Supple. No JVD, no carotid bruit. No lymphadenopathy. LUNGS: Clear to auscultation. No rales or rhonchi. HEART: S1, S2 normal. No S3. No murmur, gallop or regurgitation. ABDOMEN: Soft, nontender. Bowel sounds active. No rigidity. No rebound or guarding. No CVA tenderness. EXTREMITIES: No clubbing, cyanosis or pedal edema. MUSCULOSKELETAL: No joint swelling. NEUROLOGIC: Awake, alert, oriented times three. No focal deficit. LYMPHATIC: No lymph nodes palpable. SKIN: Intact. LABS: Sodium 145, potassium 3.9, chloride 101, bicarb 31, BUN 22, creatinine 0.72, white count 9.54, hemoglobin 12.9, hematocrit 40, platelet count 215. ASSESSMENT: 1. CHEST PAIN, RULE OUT ACUTE CORONARY SYNDROME 2. SHORTNESS OF BREATH SECONDARY TO THE DECONDITIONING AND UPPER RESPIRATORY INFECTION 3. HYPERTENSION 4. DYSLIPIDEMIA 5. SLEEP APNEA, C-PAP 6. HYPOTHYROIDISM 7. DEPRESSION 8. ANXIETY PLAN: 1. Cardiology consultation with Dr. Godwin. 2. TSH and lipid profile. 3. Will follow up with the patient in daily rounds. TIME SPENT: More than 30 minutes MTDD
--- NOTE | 2016-12-24 10:13 | PN ---
DATE OF SERVICE: 12/12/16 SUBJECTIVE: The patient was admitted with chest pain and shortness of breath. Triglycerides are 256, total cholesterol is 176, LDL 94, TSH 1.427, Free T4 is 0.70. The shortness of breath is some better. The chest pain has resolved. REVIEW OF SYSTEMS: CONSTITUTIONAL: No fever, no chills. HEENT: Normal. ENDOCRINE: No weight gain, no weight loss. CVS: No angina symptoms. No CHF symptoms. No palpitations. No atypical chest pain for CAD. Shortness of breath. No PND, no orthopnea. RESPIRATORY: No cough, no hemoptysis. GI: No nausea, no vomiting. No abdominal pain. : No hematuria. No polyuria. MUSCULOSKELETAL:. No joint swelling. PSYCHIATRIC: Not anxious. No depression. No suicidal thoughts. No homicidal thoughts. SKIN: Intact. No rash. PHYSICAL EXAMINATION: GENERAL: Morbidly obese lady sitting in the bed and not in any distress. The patient will be taken for the echocardiogram evaluation now. V/S: Blood pressure is 134/74, respiratory rate 18, heart rate is 68, temperature 97.0, saturation 95 at room air. HEENT: Normocephalic, atraumatic. Mucosa dry. NECK: Supple. No JVD, no carotid bruit. No lymphadenopathy. LUNGS: Clear to auscultation. No rales or rhonchi. HEART: S1, S2 normal. No S3. No murmur, gallop or regurgitation. ABDOMEN: Soft, nontender. Bowel sounds active. No rigidity. No rebound or guarding. No CVA tenderness. EXTREMITIES: No clubbing, cyanosis or pedal edema. MUSCULOSKELETAL: No joint swelling. NEUROLOGIC: Awake, alert, oriented times three. No focal deficit. LYMPHATIC: No lymph nodes palpable. SKIN: Intact. LABS: Sodium 144, potassium 3.7, chloride 99, bicarb 30, BUN 22, creatinine 0.69, total cholesterol 176, LDL 94, triglycerides 256, white count 11.43, hemoglobin 12.8, hematocrit 38.7, platelet count 228. ASSESSMENT: 1. CHEST PAIN, RULE OUT ACUTE CORONARY SYNDROME, MOST LIKELY NONCARDIAC. MAYBE A REACTION FROM THE STEROIDS AND ACID REFLUX, BUT WE ARE STILL AWAITING THE ECHOCARDIOGRAM RESULTS TODAY. 2. HYPERTENSION 3. SLEEP APNEA ON C-PAP 4. UPPER RESPIRATORY INFECTION 5. MORBID OBESITY 6. OSTEOARTHRITIS 7. DJD OF THE SPINE 8. DEPRESSION 9. ANXIETY 10. CHOLECYSTECTOMY 11. 12. CATARACT SURGERY PLAN: 1. Echocardiogram. 2. Simvastatin 20 mg p.o. daily. 3. Decrease the steroids to 20 mg p.o. daily. 4. Soft diet, no spicy food. 5. Lifestyle modification and weight loss discussed. TIME SPENT: More than 30 minutes MTDD
--- NOTE | 2016-12-24 10:41 | DS ---
DATE OF SERVICE: 12/12/16 FINAL DIAGNOSIS: 1. CHEST PAIN MOSTLY FROM THE PLEURISY 2. UPPER RESPIRATORY INFECTION 3. ELEVATED D-DIMER 4. PULMONARY EMBOLISM NEGATIVE 5. ELEVATED CKMB, MOST LIKELY FROM THE MUSCLE, NONCARDIAC 6. MORBID OBESITY 7. HYPERTENSION 8. DYSLIPIDEMIA 9. DEPRESSION 10. PERIPHERAL NEUROPATHY 11. GERD 12. ANXIETY DISORDER 13. COPD 14. DEPENDENT EDEMA 15. MIGRAINE HEADACHES PLAN: 1. Discharge the patient home. 2. Keflex 500 mg twice a day for five more days. 3. Prednisone 10 mg p.o. daily. 4. Simvastatin 20 mg p.o. daily. DIET INSTRUCTIONS: Cardiac and healthy. DISEASE SPECIFIC EDUCATION: About the coronary artery disease, chest pain, COPD , bronchitis were discussed. Weight loss importance was discussed with the patient in detail. HOSPITAL COURSE: Connie Ghotra, who is a 56 year old female, was initially treated for a respiratory infection and left ear pain as an outpatient. She came to the emergency room as the patient started having left sided chest pain, coughing and congestion. In view of her risk factors and the age, the patient is admitted to the hospital for the upper respiratory infection, left sided chest pain and pleurisy. Dr. Godwin consultation was obtained for the chest pain. He was courteous enough to do the echocardiogram on the patient which did show the left ventricular enlargement. The second set of cardiac enzymes again the CKMB was 7.8, Troponin was negative. We obtained a cholesterol panel showing triglycerides 256, total cholesterol 176, LDL 94. Meanwhile, the patient is getting slowly better. The chest pain was resolved with 1 cc of Decadron. She was still coughing and was able to get yellow phlegm. No fever or chills. As the patient was feeling better and did not have any complications , the patient is being discharged to home. CT of the chest was done for the elevated D-Dimer, which did not show any acute infiltrates. Lifestyle modification, weight loss and diet was discussed. New medication side effects, Simvastatin side effects of myalgia, rhabdomyolysis was discussed. TIME SPENT: MORE THAN 55 MINUTES TODAY MTDD
== END 2016-12-12 14:15 | disposition home or self-care (01) | DRG 313 ==
LOC: ED 11:07 → MEDSURG B 15:49
PROVIDERS: ADMIT Emergency Medicine; ATTEND Emergency Medicine
DX: R07.9 Chest pain, unspecified (principal); J06.9 Acute upper respiratory infection, unspecified; R09.1 Pleurisy; I10 Essential (primary) hypertension; R06.02 Shortness of breath; I51.7 Cardiomegaly; R79.1 Abnormal coagulation profile; R74.8 Abnormal levels of other serum enzymes; E11.9 Type 2 diabetes mellitus without complications; J44.9 Chronic obstructive pulmonary disease, unspecified; E78.5 Hyperlipidemia, unspecified; E66.01 Morbid (severe) obesity due to excess calories; F41.8 Other specified anxiety disorders; G62.9 Polyneuropathy, unspecified; K21.9 Gastro-esophageal reflux disease without esophagitis; R60.0 Localized edema; G43.909 Migraine, unspecified, not intractable, without status migrainosus; G47.30 Sleep apnea, unspecified; E03.9 Hypothyroidism, unspecified; R61 Generalized hyperhidrosis; Z79.899 Other long term (current) drug therapy; Z87.891 Personal history of nicotine dependence; Z99.89 Dependence on other enabling machines and devices
CPT/HCPCS: 36415; 80053; 80061; 82550; 82553; 82803; 82962; 83880; 84145; 84439; 84443; 84484; 85025; 85379; 87040; 93005; 93010; 96374; 96375; 97802; 99232; 99255; 99284

== ENCOUNTER 2017-01-10 21:46 | Inpatient (IN) ==
[2017-01-10] MEDS ORDERED: DUONEB NEB STA (22:04)
[2017-01-10 22:16] LABS: BASOPHILS # (AUTO) 0.1 K/uL (0-0.2); BASOPHILS % (AUTO) 0.8 % (0.0-3.0); EOSINOPHILS # (AUTO) 0.5 K/ul (0.0-0.7); EOSINOPHILS % (AUTO) 5.2 % (0.0-7.0); HEMATOCRIT 36.4 % (37.0-47.0); HEMOGLOBIN 12.1 g/dl (12.0-16.0); IMMATURE GRANULOCYTE % (AUTO) 0.3 % (0.0-5.0); LYMPHOCYTES # (AUTO) 2.5 K/uL (0.60-3.4); LYMPHOCYTES % (AUTO) 29.1 (10.0-50.0); MEAN CORPUSCULAR HGB CONC 33.2 (31.8-35.4); MEAN CORPUSCULAR VOLUME 90.1 fl (81.0-99.0); MONOCYTES % (AUTO) 11.3 (0-10); NEUTROPHILS # (AUTO) 4.6 K/ul (2.0-6.9); NEUTROPHILS % (AUTO) 53.3; PLATELET COUNT 191 10^3/uL (140-440); RED BLOOD COUNT 4.04 10^6/ul (4.20-5.40); WHITE BLOOD COUNT 8.68 K/ul (4.6-10.2)
--- NOTE | 2017-01-10 22:39 | CT ---
EXAM: CT scan thorax without contrast HISTORY: Shortness of breath COMPARISON: CTA thorax 12/10/2016 FINDINGS: Contiguous axial images obtained through the thorax without contrast utilizing 5-mm collim ation. Sagittal and coronal reconstructions were imaged and reviewed.. The thoracic inlet is unrema rkable. There are subcentimeter pretracheal lymph nodes. The heart is top normal in size with coron shiva artery calcification. There is no pericardial effusion.. Subsegmental ectasis is seen at the le ft lung base. There is no evidence of infiltrate or effusion. Fatty infiltration is seen within the liver.. Mild compression deformities are noted at T10- and T11 with resultant kyphosis. IMPRESSION: Heart is top normal in size with coronary artery calcification. Subsegmental atelectasis left lung base. Fatty liver.
--- NOTE | 2017-01-10 22:55 | ED.PDOC ---
General ED Provider: Dr. JOHNNY LYNNE Chief Complaint: Shortness of Air Stated Complaint: C/o been short of breatha nd was seen by PA, was started on the Watre pills, but i still feel swollen. has some chest pain left side, not related to exertion Time Seen by Physician: 22:52 Mode of Arrival: Walk-In Information Source: Patient Primary Care Provider: AUBREY ESTEBAN Nursing and Triage Documentation Reviewed and Agree: Yes Respiratory Complaint Exam - Shortness of Air Complaint/Exam Symptoms Are: Still present Timing: Constant Initial Severity: Mild Current Severity: Mild Character: Reports: Dyspnea on exertion Aggravating: Reports: Allergens, URI Alleviating: Reports: None Associated Signs and Symptoms: Reports: Cough, Edema. Denies: Wheezing, Chest pain with cough, Chest pain, Fever, Chills, Diaphoresis, Nasal congestion, Dizziness, Calf pain, Calf swelling, Rapid breathing, Labored breathing, Decreased intake Related History: Reports: Similar episode History of Healthcare-Acquired Pneumonia: No Pulmonary Embolism Risk Factors: Reports: None Cardiac Risk Factors: Reports: CAD, Elevated lipids, Diabetes Pseudomonas Risk Factors: Reports: None Tuberculosis Risk Factors: Reports: None Home Oxygen Use: No Recent Stress Test: No Recent Echo/LV Function: Yes Respiratory Distress: None Stridor Present: No Accessory Muscle Use: No Retractions: Not Present Diminished Breath Sounds: No Prolonged Expiratory Phase: No Unable to Speak Full Sentences: No Fatigue: No Leg Swelling: No Differential Diagnoses: CHF, Bronchitis Review of Systems - Review Of Systems Constitutional: Reports: No symptoms Eyes: Reports: No symptoms Ears, Nose, Mouth, Throat: Reports: No symptoms Respiratory: Reports: Cough, Short of air Cardiac: Reports: No symptoms GI: Reports: No symptoms : Reports: No symptoms Musculoskeletal: Reports: No symptoms Skin: Reports: No symptoms Neurological: Reports: No symptoms Endocrine: Reports: No symptoms Hematologic/Lymphatic: Reports: No symptoms All Other Systems: Reviewed and Negative Past Medical History - Past Medical History Previously Healthy: Yes Endocrine: Reports: DM 2, Dyslipidemia Cardiovascular: Reports: Hypertension Respiratory: Reports: COPD Hematological: Reports: None Gastrointestinal: Reports: GERD Genitourinary: Reports: None Neuro/Psych: Reports: Anxiety, Depression Musculoskeletal: Reports: Arthritis Cancer: Reports: None Last Menstrual Period: AT 46 YRS OLD Other Pertinent Past Medical History: C SECTION X2, LASIK SURGERY, GB, TUBALBULGING DISK IN BACK - Surgical History General Surgical History: Reports: Tubal ligation, (x2), Cholecystectomy, Other ( LASIK SURGERY, BULGING DISK IN BACK) - Family History Family History: Reports: Unknown - Social History Smoking Status: Former smoker Hx Substance Use: No Alcohol Screening: None - Immunizations Tetanus Shot up to Date: Yes Physical Exam - Physical Exam Appearance: Ill-appearing, Obese Eyes: YAQUELIN, EOMI, Conjunctiva clear ENT: Ears normal, Nose normal, Oropharynx normal Respiratory: Airway patent, Breath sounds clear, Breath sounds equal, Respirations nonlabored Cardiovascular: RRR, Pulses normal, No rub, No murmur GI/: Soft, Nontender, No masses, Bowel sounds normal, No Organomegaly Musculoskeletal: Normal strength, ROM intact, No edema, No calf tenderness Skin: Warm, Dry, Normal color Neurological: Sensation intact, Motor intact, Reflexes intact, Cranial nerves intact, Alert, Oriented Psychiatric: Affect appropriate, Mood appropriate Interpretation - Radiology Interpretation Radiology Interpretation By: Radiologist Radiology Results: Positive Exam Interpreted: CT Scan Critical Care Note - Critical Care Note Total Time (mins): 30 Course - Course Hematology/Chemistry: 01/10/17 22:10 01/10/17 22:10 Orders, Labs, Meds: Lab Review 01/10/17 01/10/17 01/10/17 22:10 22:10 22:10 WBC 8.68 RBC 4.04 L Hgb 12.1 Hct 36.4 L MCV 90.1 MCH 30.0 MCHC 33.2 RDW Coeff of Taylor 13.9 Plt Count 191 Immature Gran % (Auto) 0.3 Neut % (Auto) 53.3 Lymph % (Auto) 29.1 [place] % (Auto) 11.3 H Eos % (Auto) 5.2 Baso % (Auto) 0.8 Immature Gran # (Auto) 0.0 Neut # 4.6 Lymph # 2.5 [place]ks # 1.0 Eos # 0.5 Baso # 0.1 D-Dimer (Manual) Sodium 140 Potassium 3.8 Chloride 102 Carbon Dioxide 26 Anion Gap 15.8 BUN 20 H Creatinine 0.73 Estimated GFR (MDRD) 83.00 BUN/Creatinine Ratio 27.39 Glucose 97 Calcium 9.3 Total Bilirubin 0.36 AST 29 ALT 30 Alkaline Phosphatase 65 Total Creatine Kinase 509 CK-MB (CK-2) 20.2 H* CK-MB (CK-2) % 3.94494 Troponin I < 0.0100 B-Natriuretic Peptide 18 Total Protein 7.4 Albumin 3.5 Globulin 3.9 Albumin/Globulin Ratio 0.90 01/10/17 22:10 WBC RBC Hgb Hct MCV MCH MCHC RDW Coeff of Taylor Plt Count Immature Gran % (Auto) Neut % (Auto) Lymph % (Auto) [place] % (Auto) Eos % (Auto) Baso % (Auto) Immature Gran # (Auto) Neut # Lymph # [place] # Eos # Baso # D-Dimer (Manual) 882.96 Sodium Potassium Chloride Carbon Dioxide Anion Gap BUN Creatinine Estimated GFR (MDRD) BUN/Creatinine Ratio Glucose Calcium Total Bilirubin AST ALT Alkaline Phosphatase Total Creatine Kinase CK-MB (CK-2) CK-MB (CK-2) % Troponin I B-Natriuretic Peptide Total Protein Albumin Globulin Albumin/Globulin Ratio Orders Category Date Time Status ADMIT PATIENT INPATIENT .TO [facility] (MONITORED BED) ADMISSION 01/10/17 23: 26 Active ABG DRAW REQUEST Stat CARDIO 01/10/17 22:04 Ordered ABG DRAW REQUEST Stat CARDIO 01/10/17 22:04 Ordered EKG-(ED ONLY) Stat CARDIO 01/10/17 22:04 Ordered EKG-(IP & OP ONLY) Stat CARDIO 01/10/17 23:26 Ordered NEBULIZER TREATMENT Routine CARDIO 01/10/17 23:31 Ordered NEBULIZER TREATMENT Stat CARDIO 01/10/17 22:04 Ordered OXYGEN Routine CARDIO 01/10/17 23:27 Ordered ACTIVITY .BR with BRP CARE 01/10/17 23:26 Active INTAKE & OUTPUT Q8HR CARE 01/10/17 23:26 Active TELEMETRY MONITORING TELE CARE 01/10/17 23:26 Active VITAL SIGNS Q4HR CARE 01/10/17 23:26 Active CARDIAC DIET DIETARY 01/10/17 Breakfast Ordered ED IV/MEDIPORT/POWERPORT .ONCE EMERGENCY 01/10/17 23:09 Active B-TYPE NATRIURETIC PEPTIDE Stat LAB 01/10/17 22:10 Completed CBC W/ AUTO DIFF DAILY@0600 LAB 01/11/17 06:00 Ordered CBC W/ AUTO DIFF DAILY@0600 LAB 01/12/17 06:00 Ordered CBC W/ AUTO DIFF DAILY@0600 LAB 01/13/17 06:00 Ordered CBC W/ AUTO DIFF DAILY@06 LAB 01/14/17 06:00 Ordered CBC W/ AUTO DIFF DAILY@06 LAB 01/15/17 06:00 Ordered CBC W/ AUTO DIFF DAILY@06 LAB 01/16/17 06:00 Ordered CBC W/ AUTO DIFF DAILY@0600 LAB 01/17/17 06:00 Ordered CBC W/ AUTO DIFF DAILY@0600 LAB 01/18/17 06:00 Ordered CBC W/ AUTO DIFF DAILY@06 LAB 01/19/17 06:00 Ordered CBC W/ AUTO DIFF DAILY@06 LAB 01/20/17 06:00 Ordered CBC W/ AUTO DIFF DAILY@06 LAB 01/21/17 06:00 Ordered CBC W/ AUTO DIFF DAILY@06 LAB 01/22/17 06:00 Ordered CBC W/ AUTO DIFF DAILY@06 LAB 01/23/17 06:00 Ordered CBC W/ AUTO DIFF DAILY@06 LAB 01/24/17 06:00 Ordered CBC W/ AUTO DIFF DAILY@06 LAB 01/25/17 06:00 Ordered CBC W/ AUTO DIFF DAILY@06 LAB 01/26/17 06:00 Ordered CBC W/ AUTO DIFF DAILY@06 LAB 01/27/17 06:00 Ordered CBC W/ AUTO DIFF DAILY@06 LAB 01/28/17 06:00 Ordered CBC W/ AUTO DIFF DAILY@06 LAB 01/29/17 06:00 Ordered CBC W/ AUTO DIFF DAILY@06 LAB 01/30/17 06:00 Ordered CBC W/ AUTO DIFF Stat LAB 01/10/17 22:10 Completed COMPREHENSIVE METABOLIC PANEL DAILY@06 LAB 01/11/17 06:00 Ordered COMPREHENSIVE METABOLIC PANEL DAILY@06 LAB 01/12/17 06:00 Ordered COMPREHENSIVE METABOLIC PANEL DAILY@06 LAB 01/13/17 06:00 Ordered COMPREHENSIVE METABOLIC PANEL DAILY@06 LAB 01/14/17 06:00 Ordered COMPREHENSIVE METABOLIC PANEL DAILY@06 LAB 01/15/17 06:00 Ordered COMPREHENSIVE METABOLIC PANEL DAILY@06 LAB 01/16/17 06:00 Ordered COMPREHENSIVE METABOLIC PANEL DAILY@0600 LAB 01/17/17 06:00 Ordered COMPREHENSIVE METABOLIC PANEL DAILY@06 LAB 01/18/17 06:00 Ordered COMPREHENSIVE METABOLIC PANEL DAILY@06 LAB 01/19/17 06:00 Ordered COMPREHENSIVE METABOLIC PANEL DAILY@0600 LAB 01/20/17 06:00 Ordered COMPREHENSIVE METABOLIC PANEL DAILY@0600 LAB 01/21/17 06:00 Ordered COMPREHENSIVE METABOLIC PANEL DAILY@0600 LAB 01/22/17 06:00 Ordered COMPREHENSIVE METABOLIC PANEL DAILY@0600 LAB 01/23/17 06:00 Ordered COMPREHENSIVE METABOLIC PANEL DAILY@0600 LAB 01/24/17 06:00 Ordered COMPREHENSIVE METABOLIC PANEL DAILY@0600 LAB 01/25/17 06:00 Ordered COMPREHENSIVE METABOLIC PANEL DAILY@0600 LAB 01/26/17 06:00 Ordered COMPREHENSIVE METABOLIC PANEL DAILY@0600 LAB 01/27/17 06:00 Ordered COMPREHENSIVE METABOLIC PANEL DAILY@0600 LAB 01/28/17 06:00 Ordered COMPREHENSIVE METABOLIC PANEL DAILY@0600 LAB 01/29/17 06:00 Ordered COMPREHENSIVE METABOLIC PANEL DAILY@0600 LAB 01/30/17 06:00 Ordered COMPREHENSIVE METABOLIC PANEL Stat LAB 01/10/17 22:10 Completed CREATINE KINASE Q8H LAB 01/11/17 05:30 Ordered CREATINE KINASE Q8H LAB 01/11/17 13:30 Ordered CREATINE KINASE Stat LAB 01/10/17 22:10 Completed D-DIMER Stat LAB 01/10/17 22:10 Completed TROPONIN I Stat LAB 01/10/17 22:10 Completed UA [URINALYSIS C & S IF INDICATED] Stat LAB 01/10/17 23:05 Uncollected 0.9 % Sodium Chloride [Saline Flush] MEDS 01/10/17 23:09 Ordered 1 syr IVF PRN PRN Acetaminophen [Tylenol] MEDS 01/10/17 23:26 Ordered 650 mg PO Q4H PRN Acetic Acid [Acetic Acid] MEDS 01/10/17 23:45 Ordered 4 drop OT DIRECTED Ceftriaxone Sodium [Rocephin] MEDS 01/10/17 23:22 Discontinued 1 gm .ROUTE .STK-MED ONE Ceftriaxone Sodium [Rocephin] 1 gm MEDS 01/11/17 09:00 Ordered 0.9 % Sodium Chloride [Sodium Chloride] 50 ml IV DAILY Ceftriaxone Sodium [Rocephin] 1 gm MEDS 01/10/17 23:09 Active 0.9 % Sodium Chloride [Sodium Chloride] 50 ml IV ONCE Enoxaparin Sodium [Lovenox] MEDS 01/11/17 09:00 Ordered 40 mg SUBCUT DAILY Fluoxetine HCl [Prozac] MEDS 01/11/17 09:00 Ordered 60 mg PO DAILY Furosemide [Lasix Tab] MEDS 01/11/17 09:00 Ordered 40 mg PO DAILY Gabapentin [Neurontin] MEDS 01/11/17 09:00 Ordered 600 mg PO QID Ipratropium/Albuterol Neb [Duoneb] MEDS 01/10/17 22:04 Discontinued 1 vial NEB ONCE STA Ipratropium/Albuterol Neb [Duoneb] MEDS 01/11/17 00:00 Ordered 1 vial NEB RTQ6H Linagliptin [Tradjenta] MEDS 01/11/17 09:00 Ordered 5 mg PO DAILY Loratadine [Loratadine] MEDS 01/10/17 23:45 Ordered 10 mg PO DIRECTED Lorazepam [Ativan] MEDS 01/11/17 09:00 Ordered 1 mg PO TID Losartan/Hydrochlorothiazide [Losartan-Hctz 100-25 mg MEDS 01/11/17 09:00 Ordered Tab] 1 each PO DAILY Methylprednisolone Sod Succ/Pf [Solu-Medrol 40 mg] MEDS 01/10/17 23:30 Ordered 40 mg IVP Q12H Metoprolol Succinate [Metoprolol Succinate] MEDS 01/11/17 09:00 Ordered 100 mg PO DAILY Montelukast Sodium [Singulair] MEDS 01/11/17 21:00 Ordered 10 mg PO BEDTIME Multivitamin MEDS 01/11/17 09:00 Ordered 1 cap PO DAILY Potassium Chloride [Potassium Chloride] MEDS 01/11/17 09:00 Ordered 20 meq PO DAILY Quetiapine Fumarate [Seroquel Xr] MEDS 01/11/17 21:00 Ordered 300 mg PO BEDTIME Ranitidine HCl [Zantac] MEDS 01/11/17 06:30 Ordered 150 mg PO BIDAC Simvastatin [Simvastatin] MEDS 01/11/17 21:00 Ordered 20 mg PO BEDTIME Sodium Chloride 0.9% [Sodium Chloride] 1,000 ml MEDS 01/10/17 23:30 Ordered IV 30 mls/hr Topiramate [Topamax] MEDS 01/11/17 09:00 Ordered 25 mg PO BID Tramadol HCl [Ultram] MEDS 01/10/17 23:45 Ordered 100 mg PO Q6H RESUSCITATION STATUS Routine OTHERS 01/10/17 23:[address] CHEST W/O CONTRAST Stat RADS 01/10/17 22:04 Completed Medications Generic Name Dose Route Start Last Admin Trade Name Freq PRN Reason Stop Dose Admin Acetaminophen 650 mg 01/10/17 23:26 Tylenol PO Q4H PRN Mild Pain Albuterol/Ipratropium 1 vial 01/11/17 00:00 Duoneb NEB RTQ6H [facility] Enoxaparin Sodium 40 mg 01/11/17 09:00 Lovenox SUBCUT DAILY [facility] Fluoxetine HCl 60 mg 01/11/17 09:00 Prozac PO DAILY [facility] Furosemide 40 mg 01/11/17 09:00 Lasix Tab PO DAILY [facility] Gabapentin 600 mg 01/11/17 09:00 Neurontin PO QID [facility] Ceftriaxone Sodium 1 gm/ 50 mls @ 75 mls/hr 01/10/17 23:09 01/10/17 23:32 Sodium Chloride IV 01/10/17 23:48 75 mls/hr ONCE STA Administration Sodium Chloride 1,000 mls @ 30 mls/hr 01/10/17 23:30 Sodium Chloride IV .[id number] [facility] Ceftriaxone Sodium 1 gm/ 50 mls @ 75 mls/hr 01/11/17 09:00 Sodium Chloride IV DAILY [facility] Linagliptin 5 mg 01/11/17 09:00 Tradjenta PO DAILY [facility] Lorazepam 1 mg 01/11/17 09:00 Ativan PO TID [facility] Methylprednisolone Sodium Succinate 40 mg 01/10/17 23:30 Solu-Medrol 40 Mg IVP Q12H [facility] Montelukast Sodium 10 mg 01/11/17 21:00 Singulair PO BEDTIME [facility] Multivitamins 1 cap 01/11/17 09:00 Multivitamin PO DAILY [facility] Non-Formulary Medication 4 drop 01/10/17 23:45 Acetic Acid [Acetic Acid] OT DIRECTED JIMENEZ Non-Formulary Medication 10 mg 01/10/17 23:45 Loratadine [Loratadine] PO DIRECTED [facility] Non-Formulary Medication 1 each 01/11/17 09:00 Losartan/Hydrochlorothiazide [Losartan-Hctz 100-25 Mg Tab] PO DAILY [facility] Non-Formulary Medication 100 mg 01/11/17 09:00 Metoprolol Succinate [Metoprolol Succinate] PO DAILY [facility] Non-Formulary Medication 20 meq 01/11/17 09:00 Potassium Chloride [Potassium Chloride] PO DAILY [facility] Non-Formulary Medication 300 mg 01/11/17 21:00 Quetiapine Fumarate [Seroquel Xr] PO BEDTIME JIMENEZ Non-Formulary Medication 20 mg 01/11/17 21:00 Simvastatin [Simvastatin] PO BEDTIME [facility] Non-Formulary Medication 25 mg 01/11/17 09:00 Topiramate [Topamax] PO BID JIMENEZ Ranitidine HCl 150 mg 01/11/17 06:30 Zantac PO BIDAC JIMENEZ Sodium Chloride 1 syr 01/10/17 23:09 Saline Flush IVF PRN PRN To flush IV Tramadol HCl 100 mg 01/10/17 23:45 Ultram PO Q6H JIMENEZ Discontinued Medications Generic Name Dose Route Start Last Admin Trade Name Freq PRN Reason Stop Dose Admin Albuterol/Ipratropium 1 vial 01/10/17 22:04 Duoneb NEB 01/10/17 22:05 ONCE STA Vital Signs: Temp Pulse Resp BP Pulse Ox 01/10/17 21:47 96.3 F L 86 20 121/74 91 L Departure - Departure Time of Disposition: 23:34 Disposition: ADMITTED INPATIENT Discharge Problem: Pneumonia Qualifiers: Pneumonia type: due to unspecified organism Laterality: left Lung location: lower lobe of lung Qualified Code(s): J18.1 - Lobar pneumonia, unspecified organism Instructions: Community Acquired Pneumonia (ED) Condition: Good Pt referred to PMD for follow-up: Yes Allergies/Adverse Reactions: Allergies Latex, Natural Rubber Adverse Reaction (Verified 01/10/17 21:57) metformin Adverse Reaction (Verified 01/10/17 21:57) Penicillins Adverse Reaction (Verified 01/10/17 21:57) Home Medications: Ambulatory Orders Fluoxetine HCl [Prozac] 60 mg PO DAILY 08/10/13 Gabapentin 600 mg PO QID 08/10/13 Ibuprofen 800 mg PO QID 08/10/13 Losartan/Hydrochlorothiazide [Losartan-Hctz 100-25 mg Tab] 1 each PO DAILY 08/10 Metoprolol Succinate 100 mg PO DAILY 08/10/13 Multivitamin 1 cap PO DAILY 08/10/13 Quetiapine Fumarate [Seroquel Xr] 300 mg PO BEDTIME 08/10/13 Ranitidine HCl [Zantac] 150 mg PO BIDAC 08/10/13 Tramadol HCl [Ultram] 100 mg PO Q6H 08/10/13 Furosemide [Lasix] 40 mg PO DAILY 04/07/16 Lorazepam 1 mg PO TID 04/07/16 Montelukast Sodium [Singulair] 10 mg PO BEDTIME 04/07/16 Topiramate [Topamax] 25 mg PO BID 04/07/16 Acetic Acid 4 drop OT DIRECTED 12/10/16 Loratadine 10 mg PO DIRECTED 12/10/16 Simvastatin 20 mg PO BEDTIME #30 tablet 12/12/16 Linagliptin [Tradjenta] 5 mg PO DAILY 01/10/17 Potassium Chloride 20 meq PO DAILY 01/10/17 Disposition Discussed With: Patient
[2017-01-10 23:03] LABS: ALANINE AMINOTRANSFERASE 30 U/L (12-78); ALBUMIN 3.5 g/dL (3.4-5.0); ALKALINE PHOSPHATASE 65 U/L (42-98); ANION GAP 15.8; ASPARTATE AMINO TRANSFERASE 29 U/L (15-37); BILIRUBIN,TOTAL 0.36 mg/dL (0.00-1.20); BLOOD UREA NITROGEN 20 mg/dL (7-18); BUN/CREATININE RATIO 27.39; CALCIUM 9.3 mg/dL (8.2-10.2); CARBON DIOXIDE 26 mmol/L (21-32); CHLORIDE 102 mmol/L (98-107); CREATINE KINASE 509 U/L; CREATININE 0.73 mg/dL (0.60-1.30); GLUCOSE 97 mg/dL (70-110); POTASSIUM 3.8 mmol/L (3.5-5.10); SODIUM 140 mmol/L (136-145); TOTAL PROTEIN 7.4 g/dL (6.4-8.2)
[2017-01-10 23:05] LABS: CREATINE KINASE MB 20.2 ng/ml (0.0-3.6)
[2017-01-10] MEDS ORDERED: ROCEPHIN 1 GM in SODIUM CHLORIDE 50 ML IV STA (23:09)
[2017-01-10] MEDS ORDERED: ROCEPHIN ONE (23:22)
[2017-01-10] MEDS ORDERED: SOLU-MEDROL 40 MG IVP SCH (23:30)
[2017-01-10] MEDS ORDERED: SODIUM CHLORIDE 1,000 ML IV SCH (23:30)
[2017-01-10 23:42] LABS: ABG BASE EXCESS 4 (-2.0-2.0); ABG HCO3 29.3 (22.0-26.0); ABG PCO2 52.3 mmHg (35-45); ABG PH 7.356 (7.35-7.45); ABG TCO2 31 (22.0-28.0)
[2017-01-10] MEDS ORDERED: NON-FORMULARY MEDICATION (Loratadine [Loratadine] 10 MG) PO SCH (23:45)
[2017-01-10] MEDS ORDERED: ACETIC ACID OT SCH (23:45)
[2017-01-10] MEDS: DUONEB NEB SCH (23:50)
[2017-01-11 00:41] LABS: ADD URINE MICROSCOPIC YES; BILIRUBIN,URINE Negative (NEGATIVE); KETONES,URINE Negative (NEGATIVE); LEUKOCYTE ESTERASE ,URINE Trace (NEGATIVE); NITRITE,URINE Negative (NEGATIVE); PROTEIN,URINE Negative (NEGATIVE); URINE, BLOOD Negative (NEGATIVE)
[2017-01-11] MEDS ORDERED: ULTRAM ONE ×2 (00:57→02:52)
[2017-01-11] MEDS ORDERED: SOLU-MEDROL 40 MG ONE (00:57)
[2017-01-11] MEDS: ULTRAM PO SCH ×5 (00:58→23:40)
[2017-01-11 01:16] VITALS: BMI 51.9
[2017-01-11] MEDS: DUONEB NEB SCH ×4 (05:00→23:38)
[2017-01-11] MEDS: ZANTAC PO SCH ×2 (05:32→18:02)
[2017-01-11 05:41] LABS: BASOPHILS # (AUTO) 0.1 K/uL (0-0.2); BASOPHILS % (AUTO) 0.6 % (0.0-3.0); EOSINOPHILS % (AUTO) 0.3 % (0.0-7.0); HEMATOCRIT 39.3 % (37.0-47.0); HEMOGLOBIN 13.2 g/dl (12.0-16.0); IMMATURE GRANULOCYTE % (AUTO) 0.4 % (0.0-5.0); LYMPHOCYTES # (AUTO) 1.2 K/uL (0.60-3.4); LYMPHOCYTES % (AUTO) 13.4 (10.0-50.0); MEAN CORPUSCULAR HEMOGLOBIN 30.5 pg (27.0-31.0); MEAN CORPUSCULAR HGB CONC 33.6 (31.8-35.4); MEAN CORPUSCULAR VOLUME 90.8 fl (81.0-99.0); MONOCYTES # (AUTO) 0.2 K/uL (0.4-2.0); MONOCYTES % (AUTO) 2.1 (0-10); NEUTROPHILS # (AUTO) 7.5 K/ul (2.0-6.9); NEUTROPHILS % (AUTO) 83.2; PLATELET COUNT 203 10^3/uL (140-440); RED BLOOD COUNT 4.33 10^6/ul (4.20-5.40); WHITE BLOOD COUNT 9.06 K/ul (4.6-10.2)
[2017-01-11 06:01] LABS: ALBUMIN 3.6 g/dL (3.4-5.0); ALBUMIN/GLOBULIN RATIO 0.88; ANION GAP 16.9; BILIRUBIN,TOTAL 0.24 mg/dL (0.00-1.20); CALCIUM 9.5 mg/dL (8.2-10.2); CREATININE 0.76 mg/dL (0.60-1.30); POTASSIUM 3.9 mmol/L (3.5-5.10); TOTAL PROTEIN 7.7 g/dL (6.4-8.2)
[2017-01-11 06:36] LABS: CREATINE KINASE MB 17.2 ng/ml (0.0-3.6)
[2017-01-11] MEDS ORDERED: LASIX TAB PO SCH ×2 (07:08→09:00)
[2017-01-11] MEDS ORDERED: NON-FORMULARY MEDICATION (Losartan/Hydrochlorothiazide [Losartan-Hctz 100-25 Mg Tab] 1 EAC PO SCH (09:00)
[2017-01-11] MEDS ORDERED: NON-FORMULARY MEDICATION (Potassium Chloride [Potassium Chloride] 20 MEQ) PO SCH ×22 (09:00)
[2017-01-11] MEDS ORDERED: NON-FORMULARY MEDICATION (Metoprolol Succinate [Metoprolol Succinate] 100 MG) PO SCH (09:00)
[2017-01-11] MEDS: TRADJENTA PO SCH (09:17)
[2017-01-11] MEDS: MULTIVITAMIN PO SCH (09:17)
[2017-01-11] MEDS: PROZAC PO SCH (09:17)
[2017-01-11] MEDS: TOPROL XL PO SCH (09:17)
[2017-01-11] MEDS: NEURONTIN PO SCH ×4 (09:17→20:29)
[2017-01-11] MEDS: LASIX TAB PO SCH ×2 (09:18→18:02)
[2017-01-11] MEDS: K-DUR PO SCH (09:18)
[2017-01-11] MEDS: SOLU-MEDROL 40 MG IVP SCH ×2 (09:18→20:38)
[2017-01-11] MEDS: ATIVAN PO SCH ×3 (09:18→20:29)
[2017-01-11] MEDS: HYZAAR 50-12.5 MG TAB PO SCH (09:18)
[2017-01-11] MEDS: ACETIC ACID OT SCH ×2 (09:19→20:26)
[2017-01-11] MEDS: MIRALAX PO SCH (09:19)
[2017-01-11] MEDS: LOVENOX SUBCUT SCH (09:19)
[2017-01-11] MEDS ORDERED: DOBUTAMINE 250 ML IV ONE (09:47)
[2017-01-11] MEDS ORDERED: ATROPINE SULFATE PFS ONE (09:48)
[2017-01-11] MEDS: NON-FORMULARY MEDICATION (Topiramate [Topamax] 25 MG) PO SCH ×3 (10:13→20:31)
[2017-01-11 14:49] LABS: CREATINE KINASE MB 16.2 ng/ml (0.0-3.6)
[2017-01-11] MEDS ORDERED: SEROQUEL PO STA (20:23)
[2017-01-11] MEDS ORDERED: TOPAMAX ONE (20:24)
[2017-01-11] MEDS: ROCEPHIN 1 GM in SODIUM CHLORIDE 50 ML IV SCH (20:26)
[2017-01-11] MEDS: SINGULAIR PO SCH (20:29)
[2017-01-11] MEDS: ZOCOR PO SCH (20:29)
[2017-01-11] MEDS: QUETIAPINE FUMARATE 300 MG PO SCH (20:30)
[2017-01-11] MEDS ORDERED: CALMOSEPTINE OINTMENT TP PRN (20:43)
[2017-01-11] MEDS ORDERED: NON-FORMULARY MEDICATION (Simvastatin [Simvastatin] 20 MG) PO SCH ×22 (21:00)
[2017-01-12] MEDS: DUONEB NEB SCH ×4 (05:14→23:32)
[2017-01-12] MEDS: ULTRAM PO SCH ×4 (05:29→23:38)
[2017-01-12] MEDS: ZANTAC PO SCH ×2 (05:29→17:20)
[2017-01-12] MEDS: LASIX TAB PO SCH ×2 (05:29→17:20)
[2017-01-12 05:53] LABS: BASOPHILS % (AUTO) 0.3 % (0.0-3.0); HEMATOCRIT 40.3 % (37.0-47.0); HEMOGLOBIN 13.3 g/dl (12.0-16.0); IMMATURE GRANULOCYTE % (AUTO) 0.8 % (0.0-5.0); LYMPHOCYTES # (AUTO) 1.1 K/uL (0.60-3.4); LYMPHOCYTES % (AUTO) 9.4 (10.0-50.0); MEAN CORPUSCULAR HEMOGLOBIN 29.8 pg (27.0-31.0); MEAN CORPUSCULAR VOLUME 90.2 fl (81.0-99.0); MONOCYTES # (AUTO) 0.8 K/uL (0.4-2.0); MONOCYTES % (AUTO) 6.5 (0-10); NEUTROPHILS # (AUTO) 9.9 K/ul (2.0-6.9); PLATELET COUNT 267 10^3/uL (140-440); RED BLOOD COUNT 4.47 10^6/ul (4.20-5.40); WHITE BLOOD COUNT 11.97 K/ul (4.6-10.2)
[2017-01-12 06:10] LABS: ALBUMIN 3.6 g/dL (3.4-5.0); ALBUMIN/GLOBULIN RATIO 0.84; ANION GAP 15.3; BILIRUBIN,TOTAL 0.25 mg/dL (0.00-1.20); BUN/CREATININE RATIO 24.32; CALCIUM 9.6 mg/dL (8.2-10.2); CREATININE 0.74 mg/dL (0.60-1.30); POTASSIUM 4.3 mmol/L (3.5-5.10); TOTAL PROTEIN 7.9 g/dL (6.4-8.2)
[2017-01-12] MEDS: ACETIC ACID OT SCH ×2 (09:52→20:37)
[2017-01-12] MEDS: MIRALAX PO SCH (09:52)
[2017-01-12] MEDS: HYZAAR 50-12.5 MG TAB PO SCH (09:53)
[2017-01-12] MEDS: PROZAC PO SCH (09:53)
[2017-01-12] MEDS: TOPROL XL PO SCH (09:54)
[2017-01-12] MEDS: MULTIVITAMIN PO SCH (09:54)
[2017-01-12] MEDS: LOVENOX SUBCUT SCH (09:55)
[2017-01-12] MEDS: TRADJENTA PO SCH (09:55)
[2017-01-12] MEDS: K-DUR PO SCH (09:55)
[2017-01-12] MEDS: NEURONTIN PO SCH ×4 (09:55→20:39)
[2017-01-12] MEDS: NON-FORMULARY MEDICATION (Topiramate [Topamax] 25 MG) PO SCH ×2 (09:56→20:31)
[2017-01-12] MEDS: SOLU-MEDROL 40 MG IVP SCH ×2 (09:56→20:39)
[2017-01-12] MEDS: TYLENOL PO PRN ×2 (10:03→15:17)
[2017-01-12] MEDS: ATIVAN PO SCH ×3 (10:03→20:38)
--- NOTE | 2017-01-12 11:16 | DOBSTECHO ---
Ordering Physician: HOSPITALIST--JOHNNY LYNNE Date of Test: 01/11/17 Reason for Examination: CHEST PAIN, HTN Current Medications: ULTRAM, PROZAC, GABAPENTIN, SEROQUEL, ZANTAC, LOSARTAN, LORAZEPAM, SINGULAIR, LASIX, TOPAMAX, SIMVASTATIN, TRADJENTA Height: 67" Weight: 331 LBS Target Heart Rate: 140 ST Segment Stage Time HR BPM BP mmhg Rhythm +/- Up Down Comments/Symptoms Control Sitting 104 164/94 SR X NONE Dobutamine 250mg/D5W 5cmg/KG/mn 10cmg/KG/mn 3" 107 SR X NONE 15cmg/KG/mn 2" 117 170/76 SR X NONE 20cmg/KG/mn 2" 126 SR X NONE 25cmg/KG/mn 1:19 134 180/56 SR X NONE 30cmg/KG/mn 35cmg/KG/mn 40cmg/KG/mn Time: 6" HR B/P Time: 8" HR B/P Time: HR B/P Recovery 110 160/64 Recovery 110 Recovery Total Time: 8:19 Maximum Heart Rate Reached: 134 Interpretation: 91% OXYGEN SATURATION ON ROOM AIR 1. NO EVIDENCE OF ISCHEMIA BY ST-T WAVE 2. NO CHEST PAIN OR DISCOMFORT 3. NORMAL LEFT VENTRICULAR CONTRACTILITY--RESTING AND DURING DOBUTAMINE INFUSION (QUALITY OF ECHO SUB PAR DUE TO BODY HABITUS) WITH HEART RATE 134 BPM, OXYGEN SATURATION 94%, NO ARRHYTHMIAS NOTED--POST DOBUTAMINE PATIENT MONITORED 8 MINUTES--NO SYMPTOMS OF CAD/CHF, PATIENT FEELS GOOD/ UP TO BATHROOM MTDD
--- NOTE | 2017-01-12 11:20 | ECHOSTRESS ---
Date of Exam: 01/11/17 Ordering Physician: HOSPITALIST--JOHNNY LYNNE Reason for Echo: HYPERTENSION, CHEST PAIN, DOBUTAMINE STRESS --NO ISCHEMIA M-Mode Normal Adult Results LV Dimensions Normal Adult Results AoV Opening excursions >1.6 LVEDD-base- 3.5-5.8 Ao root dimensions 2.0-3.7 LVESD-base- 3.1-4.6 L. Atrium dimensions 1.9-3.8 Post. Wall thickness 0.8-1.1 IV septum (thickness) 0.7-1.2 Post. Wall excursion 0.72-1.3 Septal motion Systolic motion R. Ventricular cavity 1.5-2.0 LVEF 60% Paradoxical septal wall motion 2-D: NORMAL LEFT VENTRICULAR CONTRACTILITY--RESTING AND WITH DOBUTAMINE INFUSION M-MODE: MV: AV: TV: PV: CHAMBER SIZE: WALL MOTION: NORMAL LEFT VENTRICULAR CONTRACTILITY--RESTING AND WITH DOBUTAMINE INFUSION PERICARDIUM: INTERPRETATION: 1. NORMAL LEFT VENTRICULAR CONTRACTILITY--RESTING AND WITH DOBUTAMINE INFUSION MTDD
--- NOTE | 2017-01-12 15:10 | PN ---
DATE OF SERVICE: 01/11/17 SUBJECTIVE: The patient was admitted yesterday in the emergency room with left lower lobe pneumonia and chest tightness, elevated CK-MB. CK-MB still today is 17.2. EKG did not show any acute changes. REVIEW OF SYSTEMS: CONSTITUTIONAL: No fever, no chills. HEENT: Normal. ENDOCRINE: No weight gain, no weight loss. CVS: No angina symptoms. No CHF symptoms. No palpitations. No atypical chest pain for CAD. No shortness of breath. No PND, no orthopnea. RESPIRATORY: Cough, no hemoptysis. GI: No nausea, no vomiting. No abdominal pain. : No hematuria. No polyuria. MUSCULOSKELETAL:. No joint swelling. PSYCHIATRIC: Not anxious. No depression. No suicidal thoughts. No homicidal thoughts. SKIN: Intact. No rash. PHYSICAL EXAMINATION: V/S: Blood pressure 163/67, respiratory rate 24, heart rate 105, temperature 96.5 with saturation 94%. HEENT: Normocephalic, atraumatic. Mucosa dry. Pallor positive. No icterus. NECK: Supple. No JVD, no carotid bruit. No lymphadenopathy. LUNGS: Decreased and basilar crackles left more than the right. No rales or rhonchi. HEART: S1, S2 normal. No S3. No murmur, gallop or regurgitation. ABDOMEN: Morbidly obese. Soft, nontender. Bowel sounds active. No rigidity. No rebound or guarding. No CVA tenderness. EXTREMITIES: No clubbing, cyanosis or pedal edema. MUSCULOSKELETAL: No joint swelling. NEUROLOGIC: Awake, alert, oriented times three. No focal deficit. LYMPHATIC: No lymph nodes palpable. SKIN: Intact. LABS: Sodium 138, potassium 3.9, chloride 101, bicarb 24, BUN 19, creatinine 0.76, Ck- MB 20.2 and 17.2, WBC 9.06, hgb 13.2, hct 39.3, plt count 203. ASSESSMENT: 1. Community acquired pneumonia, left lower lobe 2. COPD exacerbation 3. Elevated CK-MB level 4. Coronary artery disease 5. Morbid obesity 6. Hypertension 7. Diabetes PLAN: 1. Will get Dobutamine stress echo and sestamibi 2. Continue the Rocephin 3. DUO NEBS 4. Daily I&O's TIME SPENT: More than 35 minutes MTDD
[2017-01-12] MEDS ORDERED: PEPTO-BISMOL SUSP PO PRN (16:12)
[2017-01-12] MEDS ORDERED: PEPTO-BISMOL CHEW PO PRN (16:26)
[2017-01-12] MEDS: QUETIAPINE FUMARATE 300 MG PO SCH (20:32)
[2017-01-12] MEDS: ROCEPHIN 1 GM in SODIUM CHLORIDE 50 ML IV SCH (20:37)
[2017-01-12] MEDS: SINGULAIR PO SCH (20:38)
[2017-01-12] MEDS: ZOCOR PO SCH (20:39)
[2017-01-12] MEDS ORDERED: SEROQUEL PO SCH (21:00)
[2017-01-13 05:27] LABS: BASOPHILS % (AUTO) 0.3 % (0.0-3.0); EOSINOPHILS % (AUTO) 0.1 % (0.0-7.0); HEMATOCRIT 39.4 % (37.0-47.0); HEMOGLOBIN 13.1 g/dl (12.0-16.0); IMMATURE GRANULOCYTE % (AUTO) 0.5 % (0.0-5.0); LYMPHOCYTES # (AUTO) 1.1 K/uL (0.60-3.4); LYMPHOCYTES % (AUTO) 9.9 (10.0-50.0); MEAN CORPUSCULAR HGB CONC 33.2 (31.8-35.4); MEAN CORPUSCULAR VOLUME 90.2 fl (81.0-99.0); MONOCYTES # (AUTO) 0.7 K/uL (0.4-2.0); MONOCYTES % (AUTO) 6.5 (0-10); NEUTROPHILS # (AUTO) 9.1 K/ul (2.0-6.9); NEUTROPHILS % (AUTO) 82.7; PLATELET COUNT 249 10^3/uL (140-440); RED BLOOD COUNT 4.37 10^6/ul (4.20-5.40); WHITE BLOOD COUNT 11.03 K/ul (4.6-10.2)
[2017-01-13] MEDS: ULTRAM PO SCH ×2 (05:47→13:21)
[2017-01-13] MEDS: LASIX TAB PO SCH (05:47)
[2017-01-13] MEDS: ZANTAC PO SCH (05:47)
[2017-01-13] MEDS: DUONEB NEB SCH ×2 (05:53→11:04)
[2017-01-13 06:00] LABS: ALBUMIN 3.6 g/dL (3.4-5.0); ALBUMIN/GLOBULIN RATIO 0.86; ANION GAP 14.8; BILIRUBIN,TOTAL 0.21 mg/dL (0.00-1.20); BUN/CREATININE RATIO 30.55; CALCIUM 9.5 mg/dL (8.2-10.2); CREATININE 0.72 mg/dL (0.60-1.30); POTASSIUM 3.8 mmol/L (3.5-5.10); TOTAL PROTEIN 7.8 g/dL (6.4-8.2)
--- NOTE | 2017-01-13 08:42 | PN ---
DATE OF SERVICE: 01/12/17 SUBJECTIVE: The patient was admitted with left lower lobe pneumonia. She says that she is feeling a lot better today. CK-MB is still elevated 16.2. REVIEW OF SYSTEMS: CONSTITUTIONAL: No fever, no chills. HEENT: Normal. ENDOCRINE: No weight gain, no weight loss. CVS: No angina symptoms. No CHF symptoms. No palpitations. No atypical chest pain for CAD. No shortness of breath. No PND, no orthopnea. RESPIRATORY: No cough, no hemoptysis. GI: No nausea, no vomiting. No abdominal pain. : No hematuria. No polyuria. MUSCULOSKELETAL:. No joint swelling. PSYCHIATRIC: Not anxious. No depression. No suicidal thoughts. No homicidal thoughts. SKIN: Intact. No rash. PHYSICAL EXAMINATION: V/S: Blood pressure 113/56, respiratory rate 20, heart rate 81, temperature 97.5 with saturation 91% on the 2 liters. HEENT: Normocephalic, atraumatic. Mucosa dry. Pallor positive. No icterus. NECK: Supple. No JVD, no carotid bruit. No lymphadenopathy. LUNGS: Decreased and basilar crackles left more than the right. No rales or rhonchi. HEART: S1, S2 normal. No S3. No murmur, gallop or regurgitation. ABDOMEN:Morbidly obese. Soft, nontender. Bowel sounds active. No rigidity. No rebound or guarding. No CVA tenderness. EXTREMITIES: No clubbing, cyanosis or pedal edema. MUSCULOSKELETAL: No joint swelling. NEUROLOGIC: Awake, alert, oriented times three. No focal deficit. LYMPHATIC: No lymph nodes palpable. SKIN: Intact. LABS: WbC 11.97, hgb 13.3, hct 40.3, plt count 267, Sodium 139, potassium 4.3, chloride 100, bicarb 28, BUN 18, creatinine 0.74, CK-MB 16.2 ASSESSMENT: 1. Left lower lobe pneumonia 2. COPD exacerbation 3. Morbid obesity 4. Chest pain rule out ACS 5. Chest pain maybe from the pleurisy 6. Hypertension 7. Status post cholecystectomy PLAN: 1. Continue the DUO NEBS 2. Rocephin 3. Lovenox for the DVT prophylaxis 4. Lasix 5. Daily I&O's TIME SPENT: More than 35 minutes MTDD
[2017-01-13] MEDS ORDERED: TORADOL IVP STA (08:43)
[2017-01-13] MEDS: ACETIC ACID OT SCH (09:04)
[2017-01-13] MEDS: LOVENOX SUBCUT SCH (09:05)
[2017-01-13] MEDS: SOLU-MEDROL 40 MG IVP SCH (09:05)
[2017-01-13] MEDS: NON-FORMULARY MEDICATION (Topiramate [Topamax] 25 MG) PO SCH (09:06)
[2017-01-13] MEDS: HYZAAR 50-12.5 MG TAB PO SCH (09:06)
[2017-01-13] MEDS: K-DUR PO SCH (09:06)
[2017-01-13] MEDS: ATIVAN PO SCH (09:07)
[2017-01-13] MEDS: MULTIVITAMIN PO SCH (09:07)
[2017-01-13] MEDS: TOPROL XL PO SCH (09:07)
[2017-01-13] MEDS: PROZAC PO SCH (09:07)
[2017-01-13] MEDS: TRADJENTA PO SCH (09:07)
[2017-01-13] MEDS: MIRALAX PO SCH (09:08)
[2017-01-13] MEDS: NEURONTIN PO SCH ×2 (09:08→13:21)
--- NOTE | 2017-01-13 09:56 | DI ---
EXAM: Chest two view, frontal and lateral views. HISTORY: Cough, shortness of breath. COMPARISON: 01/10/2017. FINDINGS: The heart size is normal. There is no pulmonary vascular congestion. The lungs are clear save for mild left basilar subsegmental atelectasis. No pleural effusion or pneumothorax is seen. No acute osseous abnormality identified. Degenerative changes of the spine again noted. Since the pr ior study, there has been no significant interval change. IMPRESSION: No acute cardiopulmonary process.
[2017-01-13 10:18] VITALS: BP 112/60; TEMP 98
--- NOTE | 2017-02-09 13:41 | PN ---
DATE OF SERVICE: 01/10/17 SUBJECTIVE: The patient was seen and examined in the emergency room and I agree with the patient's care and the management plan. TIME SPENT: More than 30 minutes NAVJOT
--- NOTE | 2017-03-04 10:01 | DS ---
DATE OF SERVICE: 01/13/17 FINAL DIAGNOSIS: 1. Left lower lobe pneumonia 2. Chest pain, noncardiac mostly from the pleurisy 3. Diabetes mellitus, type 2 4. COPD exacerbation secondary to the pneumonia 5. Morbid obesity 6. Sleep apnea, has CPAP 7. Hypertension 8. Dyslipidemia 9. 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 times two 19.LASIK surgery 20.Cataract extract DISCHARGE INSTRUCTIONS: Discharge the patient home. See Corina Vo in the [facility] as soon as possible. Resume home medications. Keep checking the blood sugars as you are the steroids. Sugars maybe high. MEDICATIONS AT DISCHARGE: Acetic acid Prozac Lasix Neurontin Ibuprofen Lactobac Tradjenta Lorazepam Losartan Hydrochlorothiazide Metoprolol Singulair Multivitamin Potassium Chloride Prednisone Seroquel Zantac Simvastatin Topamax Tramadol NEW PRESCRIPTIONS: Keflex 500mg twice a day for 5 days Prednisone 10mg twice a day for 5 days DIET INSTRUCTIONS: Cardiac and 1,800 ADA diet ACTIVITY: Get plenty of rest. As much as tolerated. SMOKING: Former smoker DISEASE SPECIFIC EDUCATION: Pneumonia needing the vaccination Antibiotics and Probiotics and the risk of the diarrhea been discussed Use of steroids and increased sugars been discussed Advised to keep monitoring the sugars. HOSPITAL COURSE: Connie Ghotra, 56 year old female, came to the emergency room with cough, congestion and left sided chest pain. D-dimer was 882. CT of chest done in Emergency room. Heart normal in size, subsegmental atelectasis left lung base and fatty liver. At that time the patient is admitted to the hospital with left lower lobe pneumonia and chest pain from the pleurisy. In review of the diabetes history we did do Dobutamine Stress echo which was negative. Gradually the patient started feeling better with the steroids, antibiotics and breathing treatments. Up and about walking, less short of breath. BUN and creatinine was stable. CK-MB went up to 17.26 and 16.2 but cardiac evaluation was negative. Urine negative. The patient did not have any complication during the hospital stay. TIME SPENT: MORE THAN 55 MINUTES MTDD
== END 2017-01-13 14:45 | disposition home or self-care (01) | DRG 194 ==
LOC: ED 21:46 → MEDSURG B 23:38
PROVIDERS: ADMIT Emergency Medicine; ATTEND Emergency Medicine
DX: J18.1 Lobar pneumonia, unspecified organism (principal); J44.1 Chronic obstructive pulmonary disease with (acute) exacerbation; R09.1 Pleurisy; R06.02 Shortness of breath; E11.9 Type 2 diabetes mellitus without complications; I10 Essential (primary) hypertension; R74.8 Abnormal levels of other serum enzymes; K76.0 Fatty (change of) liver, not elsewhere classified; E66.01 Morbid (severe) obesity due to excess calories; K21.9 Gastro-esophageal reflux disease without esophagitis; G47.30 Sleep apnea, unspecified; E78.5 Hyperlipidemia, unspecified; F41.8 Other specified anxiety disorders; G62.9 Polyneuropathy, unspecified; G43.909 Migraine, unspecified, not intractable, without status migrainosus; M19.90 Unspecified osteoarthritis, unspecified site; M47.9 Spondylosis, unspecified; I25.10 Atherosclerotic heart disease of native coronary artery without angina pectoris; Z90.49 Acquired absence of other specified parts of digestive tract; Z79.84 Long term (current) use of oral hypoglycemic drugs; Z79.899 Other long term (current) drug therapy; Z99.89 Dependence on other enabling machines and devices
CPT/HCPCS: 36415; 80053; 81001; 82550; 82553; 82803; 83880; 84484; 85025; 85379; 87081; 93005; 93010; 94640; 96365; 96366; 97802; 99223; 99233; 99239; 99284

== ENCOUNTER 2017-10-13 11:18 | Emergency (ER) | payer OTHER ==
[2017-10-13 11:38] VITALS: BMI 51.3
--- NOTE | 2017-10-13 11:44 | ED.PDOC ---
General ED Provider: Dr. MERARY MARTINEZ Chief Complaint: Tooth Problem Stated Complaint: Painful tooth; Severe swelling of neck and bilat inframandibular region. Was diagnosed with dental abscee 1 wk ago Thursday - prescribed clindamycin 150 mg qid by Aubrey Esteban [employer]/ No better and advised no other tx offered and advise to go to ER. Denies difficulty with swallowing. Time Seen by Physician: 11:30 Mode of Arrival: Walk-In Information Source: Patient Exam Limitations: Clinical condition Primary Care Provider: AUBREY ESTEBAN Referred to ED by: PCP Nursing and Triage Documentation Reviewed and Agree: Yes Does patient meet sepsis criteria?: No System Inflammatory Response Syndrome: Not Applicable Sepsis Protocol: For patient's 13 years and over: Temp is 96.8 and below OR 101 and greater Pulse >90 BPM Resp >20/minute Acutely Altered Mental Status Are patient's symptoms suggestive of a new infection, such as: -Pneumonia -Skin, Soft Tissue -Endocarditis -UTI -Bone, Joint Infection -Implantable Device -Acute Abdominal Infection -Wound Infection -Meningitis -Blood Stream Catheter Infection -Unknown EENT Complaint Exam - Dental/Oral Complaint/Exam Mechanism of Injury: No known trauma Onset/Duration: 2 WEEK Symptoms Are: Worse Timing: Constant Initial Severity: Moderate Current Severity: Severe Location: ANTERIOR NECK/BILAT SUBMANDIBULAR REGION Character: Reports: Aching, Throbbing Aggravating: Reports: None Alleviating: Reports: None Associated Signs and Symptoms: Reports: Swelling Related History: Reports: Third molars absent. Denies: Similar episode Cardiac Risk Factors: Reports: None Dental/Oral Surgical History: Reports: None Tooth Findings: Present: Percussion tenderness, Gross decay, Abcess Cervical Lymphadenopathy Present: Yes Facial Swelling Present: Yes Septal Hematoma: Yes Foreign Body Present: No Dysphagia Present: No Drooling Present: Yes Asymmetrical Tonsillar Swelling Present: Yes Uvula Midline: No Marielena-tonsillar Fluctuence: No Trismus Present: No Palatal Petechiae Present: No Scarlatinaform Rash Present: No Lesions: Absent: Lip, Gums, Tongue, Buccal Mucosa, Pharynx Exanthem: Absent: Lip, Gums, Tongue, Buccal Mucosa, Pharynx Vesicles: Absent: Lip, Gums, Tongue, Buccal Mucosa, Pharynx Differential Diagnoses: Dental Abcess, Odontogenic Pain, Periodontic Disease, Other (LYMPHADENOPATHY) Review of Systems - Review Of Systems Constitutional: Reports: Malaise, Weakness Eyes: Reports: No symptoms Ears, Nose, Mouth, Throat: Reports: Mouth pain, Mouth swelling, Throat pain, Throat swelling Respiratory: Reports: No symptoms Cardiac: Reports: No symptoms GI: Reports: No symptoms : Reports: No symptoms Musculoskeletal: Reports: No symptoms Skin: Reports: No symptoms Neurological: Reports: No symptoms Endocrine: Reports: No symptoms Hematologic/Lymphatic: Reports: No symptoms All Other Systems: Reviewed and Negative Past Medical History - Past Medical History Previously Healthy: Yes Endocrine: Reports: DM 2, Dyslipidemia Cardiovascular: Reports: Hypertension Respiratory: Reports: COPD Hematological: Reports: None Gastrointestinal: Reports: GERD Genitourinary: Reports: None Neuro/Psych: Reports: Anxiety, Depression Musculoskeletal: Reports: Arthritis Cancer: Reports: None Last Menstrual Period: none Other Pertinent Past Medical History: C SECTION X2, LASIK SURGERY, GB, TUBALBULGING DISK IN BACK - Surgical History General Surgical History: Reports: Tubal ligation, (x2), Cholecystectomy, Other ( LASIK SURGERY, BULGING DISK IN BACK) - Family History Family History: Reports: Unknown - Social History Smoking Status: Former smoker Hx Substance Use: No Alcohol Screening: None Physical Exam - Physical Exam Appearance: Ill-appearing, Obese Ill-appearing: Moderate Pain Distress: Severe Eyes: YAQUELIN, EOMI, Conjunctiva clear ENT: Ears normal, Nose normal, Oropharynx normal, Erythema (severe gingival erythrema and dental disease upper and lower. Lower -rt of midling advanced destruction of incisor and suurrounding erythrema corresponds to probable etiology of abscess floor mouth into mandibular region ) Respiratory: Airway patent, Breath sounds clear, Breath sounds equal, Respirations nonlabored Cardiovascular: RRR, Pulses normal, No rub, No murmur GI/: Soft, Nontender, No masses, Bowel sounds normal, No Organomegaly Musculoskeletal: Normal strength, ROM intact, No edema, No calf tenderness Skin: Warm, Dry, Normal color Neurological: Sensation intact, Motor intact, Reflexes intact, Cranial nerves intact, Alert, Oriented Psychiatric: Affect appropriate, Mood appropriate Interpretation - Radiology Interpretation Radiology Interpretation By: Radiologist Exam Interpreted: CT Scan Xray Comments: changes consistent with inflamation and abscess Re-Evaluation - Re-Evaluation Time of Re-Evaluation: 16:20 Status: Unchanged Vital Signs Stable: Yes Appearance: NAD Lungs: Clear Skin: Warm and Dry Neuro: Alert and Oriented X3 CV: RRR Critical Care Note - Critical Care Note Total Time (mins): 3 Course - Course Hematology/Chemistry: 10/13/17 12:15 10/13/17 12:15 Vital Signs: Temp Pulse Resp BP Pulse Ox 10/13/17 11:20 97.7 F 81 20 150/79 H 93 L Departure - Departure Time of Disposition: 17:45 Disposition: TSF SHORT-TRM HOSP Discharge Problem: Mandibular abscess, Abscess, dental Instructions: Dental Abscess (ED) Condition: Fair Pt referred to PMD for follow-up: No IPMP verified?: No Allergies/Adverse Reactions: Allergies Latex, Natural Rubber Adverse Reaction (Verified 10/13/17 11:25) metformin Adverse Reaction (Verified 10/13/17 11:25) Penicillins Adverse Reaction (Verified 10/13/17 11:25) Home Medications: Ambulatory Orders Fluoxetine HCl [Prozac] 60 mg PO DAILY 08/10/13 Gabapentin 600 mg PO QID 08/10/13 Ibuprofen 800 mg PO QID 08/10/13 Losartan/Hydrochlorothiazide [Losartan-Hctz 100-25 mg Tab] 1 each PO DAILY 08/10 Metoprolol Succinate 100 mg PO DAILY 08/10/13 Multivitamin 1 cap PO DAILY 08/10/13 Quetiapine Fumarate [Seroquel Xr] 300 mg PO BEDTIME 08/10/13 Ranitidine HCl [Zantac] 150 mg PO BIDAC 08/10/13 Furosemide [Lasix] 40 mg PO BID 04/07/16 Montelukast Sodium [Singulair] 10 mg PO BEDTIME 04/07/16 Topiramate [Topamax] 50 mg PO BID 04/07/16 Simvastatin 20 mg PO BEDTIME #30 tablet 12/12/16 Linagliptin [Tradjenta] 5 mg PO DAILY 01/10/17 Potassium Chloride 20 meq PO DAILY 01/10/17 Lactobacillus 3/Fos/Pantethine [Probiotic & Acidophilus Cap] 1 each PO DAILY 04/29 Bupropion HCl [Wellbutrin Xl] 150 mg PO BID 10/13/17 Clonazepam 0.25 mg PO BID 10/13/17 Oxycodone HCl/Acetaminophen [Oxycodon-Acetaminophen 2.5-325] 1 each PO BID 10/13 Transfer Form Completed: Yes Disposition Discussed With: Patient Additional Information: After reviewing CT scan determine patient needs specialty care by oral surgery/ ENT Contacted Dr Fairbanks who provided phone consult; Recommeded referral to location with oral surgery.Stated no oral surg back up at [facility]. Explained need for hospialization for IV antibiotics and probable out patient dental consult Contacted Dr Peters in [place] and agrees with need of intervention but does not have reliable ENT back up Discussed with patient again and explained options/Transfer to [facility] vs [facility] [place]. Patient prefers [facility]. [facility] transfer center contacted. Awaiting return call Spoke with ENT Resident at [facility]; Accepted patient for evaluation and treatment. 1700 hrs Patient re evaluated , airway patent and no labored respirations. Has received IV antibiotic coverage and pain management Discharged and transferred by [facility] Patient in stable and satisfactory condition.
[2017-10-13] MEDS ORDERED: SODIUM CHLORIDE 1,000 ML IV STA (11:57)
[2017-10-13] MEDS ORDERED: TORADOL IM STA (11:57)
[2017-10-13] MEDS ORDERED: MAXIPIME 2 GM in SODIUM CHLORIDE 100 ML IV STA (11:58)
[2017-10-13] MEDS ORDERED: FLAGYL 500 MG/100 ML 500 MG in PREMIX 100 ML NS 1 BAG IV STA (11:58)
[2017-10-13] MEDS ORDERED: FLAGYL 500 MG/100 ML 100 ML IV ONE (12:30)
--- NOTE | 2017-10-13 13:55 | CT ---
EXAM: CT of the soft tissue neck with contrast History: Severe neck swelling. Technique: Multiplanar CT images through the soft tissue neck were obtained following administration of IV contrast. Findings: There is motion. Visualized upper lungs are free of consolidation. No acute osseous abno rmalities. No air-fluid levels are seen within the sinuses and mastoid air cells. Moderate to sever e degenerative disc disease at C5-6. Bilateral orbits are intact. Visualized intracranial contents demonstrate no grossly acute findings. No parotid masses. Bilateral palatine tonsils are enlarged w hich moderately narrowing the airway. No peritonsillar inflammation. Seen at the base of the tongue adjacent to the right lower mandible there is a 3.3 cm x 1.8 cm collec tion of fluid with adjacent inflammation and phlegmonous change extending more inferiorly measuring 3 .8 cm. There are enlarged bilateral submandibular lymph nodes which are most likely reactive. There is anterior subluxation of the bilateral mandibular condylar heads. Multiple missing teeth. No acu te fracture or dislocation. 2.4 cm ill-defined nodule within the left thyroid lobe. Impression: 1. Abscess at the base of the right tongue adjacent to the right lower mandible. Adjacent to the ab scess, there is a larger area of phlegmonous change consistent with further development of the absces s. 2. Reactive lymph nodes. 3. Enlarged bilateral palatine tonsils moderately narrowing the airway. There is no peritonsillar i nflammation. 4. Left thyroid nodule. Correlate with thyroid ultrasound.
[2017-10-13 15:57] VITALS: BP 120/59; TEMP 98.2
[2017-10-13] MEDS ORDERED: MORPHINE 2 MG/ML SYRINGE IVP STA (16:42)
[2017-10-13] MEDS ORDERED: DILAUDID IVP STA (17:48)
== END 2017-10-13 17:55 | disposition short-term general hospital (02) ==
LOC: ED 11:18
DX: K04.7 Periapical abscess without sinus (principal); K12.2 Cellulitis and abscess of mouth; K02.7 Dental root caries; R22.1 Localized swelling, mass and lump, neck
CPT/HCPCS: 36415; 80053; 83605; 85025; 85651; 87040; 96361; 96365; 96367; 96372; 99285

== ENCOUNTER 2017-11-01 11:09 | Emergency (ER) ==
[2017-11-01 11:30] VITALS: BP 125/78; TEMP 98; BMI 51.3
--- NOTE | 2017-11-01 11:56 | ED.PDOC ---
General ED Provider: Dr. MERARY JIMENEZ-ER Chief Complaint: Knee Pain/Injury Stated Complaint: my knees hurt --left worse than right Time Seen by Physician: 11:54 Mode of Arrival: Walk-In Information Source: Family Exam Limitations: No limitations Primary Care Provider: AUBREY ESTEBAN Nursing and Triage Documentation Reviewed and Agree: Yes Does patient meet sepsis criteria?: No System Inflammatory Response Syndrome: Not Applicable Sepsis Protocol: For patient's 13 years and over: Temp is 96.8 and below OR 101 and greater Pulse >90 BPM Resp >20/minute Acutely Altered Mental Status Are patient's symptoms suggestive of a new infection, such as: -Pneumonia -Skin, Soft Tissue -Endocarditis -UTI -Bone, Joint Infection -Implantable Device -Acute Abdominal Infection -Wound Infection -Meningitis -Blood Stream Catheter Infection -Unknown Musculoskeletal Complaint Exam - Knee Pain Complaint/Exam Mechanism of Injury: Reports: Other Onset/Duration: several days Symptoms Are: Still present Onset of Pain: Reports: Immediate Initial Severity: Mild Current Severity: Moderate Location: Reports: Discrete Character: Reports: Aching Aggravating: Reports: Movement, Weight bearing, Stairs Associated Signs and Symptoms: Denies: Swelling, Redness, Bruising, Fever, Weakness, Numbness, Tingling Able to Bear Weight: No Septic Arthritis Risk Factors: Reports: None Gout Risk Factors: Reports: None Knee Findings: Present: Swelling, Tenderness Tisha Test Positive: No Jose Juan Test Positive: No Limited Range of Motion: Present: Active, Passive Differential Diagnoses: Sprain, Strain Review of Systems - Review Of Systems Constitutional: Reports: No symptoms Eyes: Reports: No symptoms Ears, Nose, Mouth, Throat: Reports: No symptoms Respiratory: Reports: No symptoms Cardiac: Reports: No symptoms GI: Reports: No symptoms : Reports: No symptoms Musculoskeletal: Reports: Joint pain Skin: Reports: No symptoms Neurological: Reports: No symptoms Endocrine: Reports: No symptoms Hematologic/Lymphatic: Reports: No symptoms All Other Systems: Reviewed and Negative Past Medical History - Past Medical History Previously Healthy: Yes Endocrine: Reports: DM 2, Dyslipidemia Cardiovascular: Reports: Hypertension Respiratory: Reports: COPD Hematological: Reports: None Gastrointestinal: Reports: GERD Genitourinary: Reports: None Neuro/Psych: Reports: Anxiety, Depression Musculoskeletal: Reports: Arthritis Cancer: Reports: None Last Menstrual Period: NA Other Pertinent Past Medical History: C SECTION X2, LASIK SURGERY, GB, TUBALBULGING DISK IN BACK - Surgical History General Surgical History: Reports: Tubal ligation, (x2), Cholecystectomy, Other ( LASIK SURGERY, BULGING DISK IN BACK) - Family History Family History: Reports: Unknown - Social History Smoking Status: Former smoker Hx Substance Use: No Alcohol Screening: None - Immunizations Tetanus Shot up to Date: Yes Physical Exam - Physical Exam Appearance: Well-appearing, No pain distress, Well-nourished Pain Distress: Moderate Eyes: YAQUELIN ENT: Ears normal, Nose normal, Oropharynx normal Neck: Supple Respiratory: Airway patent, Breath sounds clear, Breath sounds equal, Respirations nonlabored Cardiovascular: RRR GI/: Soft, Nontender, No masses, Bowel sounds normal, No Organomegaly Musculoskeletal: Limited ROM Skin: Warm Neurological: Sensation intact Psychiatric: Affect appropriate Interpretation - Radiology Interpretation Radiology Interpretation By: ED Physician Radiology Results: Positive Critical Care Note - Critical Care Note Total Time (mins): 0 Course - Course Orders, Labs, Meds: Orders Category Date Time Status KNEE, LEFT 4 VIEWS Stat RADS 11/01/17 11:33 Taken Vital Signs: Temp Pulse Resp BP Pulse Ox 11/01/17 11:22 98 F 70 16 125/78 94 L Departure - Departure Time of Disposition: 11:56 Disposition: HOME SELF-CARE Discharge Problem: Knee pain Instructions: Knee Pain (ED) Condition: Good Pt referred to PMD for follow-up: No IPMP verified?: No Additional Instructions: voltaren gel apply to the knee bid--f/u with pcp Allergies/Adverse Reactions: Allergies Latex, Natural Rubber Adverse Reaction (Verified 11/01/17 11:32) metformin Adverse Reaction (Verified 11/01/17 11:32) Penicillins Adverse Reaction (Verified 11/01/17 11:32) Home Medications: Ambulatory Orders Fluoxetine HCl [Prozac] 60 mg PO DAILY 08/10/13 Gabapentin 600 mg PO QID 08/10/13 Ibuprofen 800 mg PO QID 08/10/13 Losartan/Hydrochlorothiazide [Losartan-Hctz 100-25 mg Tab] 1 each PO DAILY 08/10 Metoprolol Succinate 100 mg PO DAILY 08/10/13 Multivitamin 1 cap PO DAILY 08/10/13 Quetiapine Fumarate [Seroquel Xr] 300 mg PO BEDTIME 08/10/13 Ranitidine HCl [Zantac] 150 mg PO BIDAC 08/10/13 Furosemide [Lasix] 40 mg PO BID 04/07/16 Montelukast Sodium [Singulair] 10 mg PO BEDTIME 04/07/16 Topiramate [Topamax] 50 mg PO BID 04/07/16 Simvastatin 20 mg PO BEDTIME #30 tablet 12/12/16 Linagliptin [Tradjenta] 5 mg PO DAILY 01/10/17 Potassium Chloride 20 meq PO DAILY 01/10/17 Lactobacillus 3/Fos/Pantethine [Probiotic & Acidophilus Cap] 1 each PO DAILY 04/29 Bupropion HCl [Wellbutrin Xl] 150 mg PO BID 10/13/17 Clonazepam 0.25 mg PO BID 10/13/17 Oxycodone HCl/Acetaminophen [Oxycodon-Acetaminophen 2.5-325] 1 each PO BID 10/13 Disposition Discussed With: Patient, Family
--- NOTE | 2017-11-01 11:56 | DI ---
EXAM: Left knee; AP, transaxial, tibial tunnel, and lateral views. HISTORY: Knee pain FINDINGS: The patellofemoral and femoral tibial joint spaces are mildly narrowed with marginal osteop hytes. There is edema throughout the thigh and leg. The bones are osteopenic. No fracture, loose salomón dies or subluxation are appreciated. IMPRESSION: Mild tricompartmental osteoarthritis. Diffuse edema. Osteopenia.
== END 2017-11-01 12:38 | disposition home or self-care (01) ==
LOC: ED 11:09
DX: M25.562 Pain in left knee (principal); M25.561 Pain in right knee
CPT/HCPCS: 99283

== ENCOUNTER 2017-12-07 12:11 | Emergency (ER) ==
[2017-12-07 12:20] VITALS: BMI 50.8
--- NOTE | 2017-12-07 13:43 | CT ---
EXAM: CT of the maxillofacial region without contrast History: Right jaw swelling. Technique: Multiplanar CT images through the maxillofacial region were obtained without the administ ration of IV contrast Findings: No acute fracture or dislocation. Small mucous retention cyst or polyp within the anterio r left maxillary sinus. Mastoid air cells are clear in general. Bilateral ostiomeatal units are not occluded. Moderate to severe degenerative disc disease at C5-6. Multiple missing teeth. Scattered periapical dental lucencies. Orbits are intact. There is subcutaneous edema and focal area of phleg monous change or developing abscess versus soft tissue mass adjacent to the right lower mandible magdalena uring 2.7 cm. There is osseous irregularity of the adjacent mandible. Visualized intracranial contents demonstrate no grossly acute findings. Impression: 1. 2.7 cm area of phlegmonous change versus developing abscess versus soft tissue mass adjacent to th e right lower mandible. There is osseous irregularity of the adjacent mandible which is probably due to osteomyelitis and less likely malignant infiltration.
--- NOTE | 2017-12-07 13:55 | ED.PDOC ---
General ED Provider: Dr. LILIANE HINDS Chief Complaint: Non-specific Complaint Stated Complaint: right sided facial edema at level of the angle of the right jaw Time Seen by Physician: 12:16 Mode of Arrival: Walk-In Information Source: Patient Exam Limitations: No limitations Primary Care Provider: AUBREY ESTEBAN Referred to ED by: Other Nursing and Triage Documentation Reviewed and Agree: Yes Does patient meet sepsis criteria?: No If yes, has appropriate treatment been initiated?: No System Inflammatory Response Syndrome: Not Applicable Sepsis Protocol: For patient's 13 years and over: Temp is 96.8 and below OR 101 and greater Pulse >90 BPM Resp >20/minute Acutely Altered Mental Status Are patient's symptoms suggestive of a new infection, such as: -Pneumonia -Skin, Soft Tissue -Endocarditis -UTI -Bone, Joint Infection -Implantable Device -Acute Abdominal Infection -Wound Infection -Meningitis -Blood Stream Catheter Infection -Unknown EENT Complaint Exam - Dental/Oral Complaint/Exam Mechanism of Injury: No known trauma Onset/Duration: 3 DAYS ON 11/19/17 HAD SOME DENTAL EXTRACTION Symptoms Are: Still present (see photos) Timing: Constant (PAST 3 DAYS RIGHT JAW IS SWOLLEN SEE PHOTOS) Initial Severity: Mild Current Severity: Mild Character: Reports: Dull Aggravating: Reports: None Alleviating: Reports: None Associated Signs and Symptoms: Reports: Swelling Related History: Reports: Similar episode Cardiac Risk Factors: Reports: Diabetes, Elevated lipids, Hypertension Dental/Oral Surgical History: Reports: None Tooth Findings: Present: Percussion tenderness, Gross decay, Dental fracture Cervical Lymphadenopathy Present: No Facial Swelling Present: Yes (SEE PHOTOS) Bleeding Present: No Oropharynx Findings: Absent: Clots, Active bleeding Septal Hematoma: No Foreign Body Present: No Dysphagia Present: No Drooling Present: No Asymmetrical Tonsillar Swelling Present: No Uvula Midline: Yes Marielena-tonsillar Fluctuence: No Lesions: Absent: Lip, Gums, Tongue, Buccal Mucosa, Pharynx Exanthem: Absent: Lip, Gums, Tongue, Buccal Mucosa, Pharynx Vesicles: Absent: Lip, Gums, Tongue, Buccal Mucosa, Pharynx Differential Diagnoses: Other (DENTAL ABSCESS ) Review of Systems - Review Of Systems Constitutional: Reports: No symptoms Eyes: Reports: No symptoms Ears, Nose, Mouth, Throat: Reports: Mouth pain (RIGHT SIDED JAW PAIN AND EDEMA SEE PHOTO) Respiratory: Reports: No symptoms Cardiac: Reports: No symptoms GI: Reports: No symptoms : Reports: No symptoms Musculoskeletal: Reports: No symptoms Skin: Reports: No symptoms Neurological: Reports: No symptoms Endocrine: Reports: No symptoms Hematologic/Lymphatic: Reports: No symptoms All Other Systems: Reviewed and Negative Past Medical History - Past Medical History Previously Healthy: Yes Endocrine: Reports: DM 2, Dyslipidemia Cardiovascular: Reports: Hypertension Respiratory: Reports: COPD Hematological: Reports: None Gastrointestinal: Reports: GERD Genitourinary: Reports: None Neuro/Psych: Reports: Anxiety, Depression Musculoskeletal: Reports: Arthritis Cancer: Reports: None Last Menstrual Period: menopause Other Pertinent Past Medical History: C SECTION X2, LASIK SURGERY, GB, TUBALBULGING DISK IN BACK - Surgical History General Surgical History: Reports: Tubal ligation, (x2), Cholecystectomy, Other ( LASIK SURGERY, BULGING DISK IN BACK) - Family History Family History: Reports: Unknown - Social History Smoking Status: Former smoker Hx Substance Use: No Alcohol Screening: None Physical Exam - Physical Exam Appearance: Well-appearing, No pain distress, Well-nourished Eyes: YAQUELIN, EOMI, Conjunctiva clear ENT: Oropharynx normal (ABSCESS RIGHT JAW ) Respiratory: Airway patent, Breath sounds clear, Breath sounds equal, Respirations nonlabored Cardiovascular: RRR, Pulses normal, No rub, No murmur GI/: Soft, Nontender, No masses, Bowel sounds normal, No Organomegaly Musculoskeletal: Normal strength, ROM intact, No edema, No calf tenderness Skin: Warm, Dry, Normal color Neurological: Sensation intact, Motor intact, Reflexes intact, Cranial nerves intact, Alert, Oriented Psychiatric: Affect appropriate, Mood appropriate Interpretation - Radiology Interpretation Radiology Interpretation By: ED Physician (CM ABSCESS VS PHLEGMON RIGHT JAW LOWER MANDIBLE) Physician Notification - Case Discussed Physician Notified: HUGO ALVAREZ AT [facility], [place], [facility] Time of Notification: 15:00 (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) Physician Notified: KRISS VelasquezU) Time of Notification: 15:20 (TRANSFER ) Critical Care Note - Critical Care Note Total Time (mins): 0 Course - Course Hematology/Chemistry: 12/07/17 12:50 12/07/17 12:50 Orders, Labs, Meds: Lab Review 12/07/17 12/07/17 12/07/17 12:10 12:50 12:50 WBC 8.69 RBC 4.30 Hgb 12.6 Hct 38.4 MCV 89.3 MCH 29.3 MCHC 32.8 RDW Coeff of Taylor 13.7 Plt Count 203 Immature Gran % (Auto) 0.3 Neut % (Auto) 65.6 Lymph % (Auto) 18.9 [place] % (Auto) 9.3 Eos % (Auto) 5.3 Baso % (Auto) 0.6 Immature Gran # (Auto) 0.0 Neut # (Auto) 5.7 Lymph # (Auto) 1.6 [place] # (Auto) 0.8 Eos # (Auto) 0.5 Baso # (Auto) 0.1 Sodium 140 Potassium 3.9 Chloride 103 Carbon Dioxide 27 Anion Gap 13.9 BUN 14 Creatinine 0.72 Estimated GFR (MDRD) 84.00 BUN/Creatinine Ratio 19.44 Glucose 107 Lactic Acid Calcium 9.5 Total Bilirubin 0.6 AST 25 ALT 25 Alkaline Phosphatase 70 Total Protein 7.8 Albumin 3.6 Globulin 4.2 Albumin/Globulin Ratio 0.86 Procalcitonin < 0.05 12/07/17 12:50 WBC RBC Hgb Hct MCV MCH MCHC RDW Coeff of Taylor Plt Count Immature Gran % (Auto) Neut % (Auto) Lymph % (Auto) [place] % (Auto) Eos % (Auto) Baso % (Auto) Immature Gran # (Auto) Neut # (Auto) Lymph # (Auto) [place] # (Auto) Eos # (Auto) Baso # (Auto) Sodium Potassium Chloride Carbon Dioxide Anion Gap BUN Creatinine Estimated GFR (MDRD) BUN/Creatinine Ratio Glucose Lactic Acid 17.3 Calcium Total Bilirubin AST ALT Alkaline Phosphatase Total Protein Albumin Globulin Albumin/Globulin Ratio Procalcitonin Orders Category Date Time Status BLOOD CULTURE Stat LAB 12/07/17 12:38 Received CBC W/ AUTO DIFF Stat LAB 12/07/17 12:50 Completed COMPREHENSIVE METABOLIC PANEL Stat LAB 12/07/17 12:50 Completed LACTIC ACID Stat LAB 12/07/17 12:50 Completed PROCALCITONIN Stat LAB 12/07/17 12:[address] MAXILLOFACIAL W/O CONTRAST Stat RADS 12/07/17 12:37 Completed Vital Signs: Temp Pulse Resp BP Pulse Ox 12/07/17 12:14 97.9 F 78 20 155/95 H 94 L Departure - Departure Time of Disposition: 15:20 Disposition: TSF SHORT-TRM HOSP Discharge Problem: Osteomyelitis, jaw acute Instructions: Dental Abscess (ED) Condition: Good Pt referred to PMD for follow-up: Yes IPMP verified?: No Additional Instructions: Please call your Family Physician as soon as possible to schedule a follow-up appointment. Allergies/Adverse Reactions: Allergies Latex, Natural Rubber Adverse Reaction (Verified 12/07/17 12:22) metformin Adverse Reaction (Verified 12/07/17 12:22) Penicillins Adverse Reaction (Verified 12/07/17 12:22) Home Medications: Ambulatory Orders Fluoxetine HCl [Prozac] 60 mg PO DAILY 08/10/13 Gabapentin 600 mg PO QID 08/10/13 Ibuprofen 800 mg PO QID 08/10/13 Losartan/Hydrochlorothiazide [Losartan-Hctz 100-25 mg Tab] 1 each PO DAILY 08/10 Metoprolol Succinate 100 mg PO DAILY 08/10/13 Multivitamin 1 cap PO DAILY 08/10/13 Quetiapine Fumarate [Seroquel Xr] 300 mg PO BEDTIME 08/10/13 Ranitidine HCl [Zantac] 150 mg PO BIDAC 08/10/13 Furosemide [Lasix] 40 mg PO BID 04/07/16 Montelukast Sodium [Singulair] 10 mg PO BEDTIME 04/07/16 Topiramate [Topamax] 50 mg PO BID 04/07/16 Simvastatin 20 mg PO BEDTIME #30 tablet 12/12/16 Linagliptin [Tradjenta] 5 mg PO DAILY 01/10/17 Potassium Chloride 20 meq PO DAILY 01/10/17 Lactobacillus 3/Fos/Pantethine [Probiotic & Acidophilus Cap] 1 each PO DAILY 04/29 Bupropion HCl [Wellbutrin Xl] 150 mg PO BID 10/13/17 Clonazepam 0.25 mg PO BID 10/13/17 Oxycodone HCl/Acetaminophen [Oxycodon-Acetaminophen 2.5-325] 1 each PO BID 10/13 Disposition Discussed With: Patient, Family
[2017-12-07 14:12] VITALS: BP 131/81; TEMP 97.4
[2017-12-07] MEDS ORDERED: ROCEPHIN 1 GM in SODIUM CHLORIDE 50 ML IV STA (15:18)
[2017-12-07] MEDS ORDERED: ROCEPHIN ONE (15:32)
== END 2017-12-07 19:00 | disposition short-term general hospital (02) ==
LOC: ED 12:11
DX: M86.18 Other acute osteomyelitis, other site (principal); M27.2 Inflammatory conditions of jaws; Z98.890 Other specified postprocedural states; K02.7 Dental root caries; S02.5XXA Fracture of tooth (traumatic), initial encounter for closed fracture; E11.9 Type 2 diabetes mellitus without complications; E78.5 Hyperlipidemia, unspecified; I10 Essential (primary) hypertension
CPT/HCPCS: 36415; 80053; 83605; 84145; 85025; 87040; 96365; 99285

== ENCOUNTER 2018-06-14 14:13 | Emergency (ER) ==
[2018-06-14 14:22] VITALS: BP 165/89; TEMP 97.1; BMI 51.0
[2018-06-14] MEDS ORDERED: ASPIRIN CHEWABLE PO STA (14:39)
--- NOTE | 2018-06-14 15:20 | DI ---
EXAM: CHEST FRONTAL VIEW HISTORY: Chest pain. COMPARISON: 01/13/2017 FINDINGS: Prominent heart size is stable. Questionable subtle vascular congestion. No consolidatio ns, pleural fluid or pneumothorax. The visualized bones have no obvious acute deformity. IMPRESSION: 1. Prominent heart size with subtle pulmonary vascular congestion.
[2018-06-14] MEDS ORDERED: LOPRESSOR IVP STA (15:54)
--- NOTE | 2018-06-14 15:59 | ED.PDOC ---
General ED Provider: Dr. LILIANE HINDS Chief Complaint: Chest Pain Stated Complaint: chest pain Time Seen by Physician: 14:17 (seen with her nurse at all times ) Mode of Arrival: Wheelchair Information Source: Patient Exam Limitations: No limitations Primary Care Provider: AUBREY ESTEBAN Nursing and Triage Documentation Reviewed and Agree: Yes Does patient meet sepsis criteria?: No System Inflammatory Response Syndrome: Not Applicable Sepsis Protocol: For patient's 13 years and over: Temp is 96.8 and below OR 101 and greater Pulse >90 BPM Resp >20/minute Acutely Altered Mental Status Are patient's symptoms suggestive of a new infection, such as: -Pneumonia -Skin, Soft Tissue -Endocarditis -UTI -Bone, Joint Infection -Implantable Device -Acute Abdominal Infection -Wound Infection -Meningitis -Blood Stream Catheter Infection -Unknown Cardiovascular Complaint Exam - Chest Pain Complaint/Exam Onset: Gradual Duration: 2 days ago Symptoms Are: Still present Timing: Intermittent Length of Chest Pain Episodes: intermittent about 1 hr Initial Severity: Mild Current Severity: Mild Location: Reports: Discrete, Midsternal Pain Radiates: Reports: Left shoulder, Jaw, Neck Character: Reports: Aching Aggravating: Reports: None Alleviating: Reports: Rest, Spontaneous resolution Associated Signs and Symptoms: Reports: Cough. Denies: Diaphoresis, Nausea, Vomiting, Fever, Palpitations, Hemoptysis, Back pain, Abdominal pain, Dizziness , Short of air, Calf pain, Calf swelling Related History: Reports: Similar episode Related Surgical History: Reports: None History of Healthcare-Acquired Pneumonia: Reports: No AMI/ACS Risk Factors: Reports: Sedentary, Obesity, Dyslipidemia TAD Risk Factors: Reports: None Pulmonary Embolism Risk Factors: Reports: None Prior Care for this Complaint: No Recent Stress Test: No Recent Echo/LV Function: No JVD Present: No Subcutaneous Emphysema Present: No Diminshed Breath Sounds: No Reproducible Chest Wall Pain: No Bilateral Pulses Present: Yes If Risk Factors for AMI/ACS Consider: EKG, Cardiac Enzymes Differential Diagnoses: Stable Angina, Lower Resp. Infection Quality Indicators For Acute GA or Cardiac Chest Pain: EKG in 10min. Quality Indicator For Non-Traumatic Chest Pain/Syncope: EKG Performed Review of Systems - Review Of Systems Constitutional: Reports: No symptoms Eyes: Reports: No symptoms Ears, Nose, Mouth, Throat: Reports: No symptoms Respiratory: Reports: No symptoms Cardiac: Reports: Chest pain GI: Reports: No symptoms : Reports: No symptoms Musculoskeletal: Reports: No symptoms Skin: Reports: No symptoms Neurological: Reports: No symptoms Endocrine: Reports: No symptoms Hematologic/Lymphatic: Reports: No symptoms All Other Systems: Reviewed and Negative Past Medical History - Past Medical History Previously Healthy: Yes Endocrine: Reports: DM 2, Dyslipidemia Cardiovascular: Reports: Hypertension Respiratory: Reports: COPD Hematological: Reports: None Gastrointestinal: Reports: GERD Genitourinary: Reports: None Neuro/Psych: Reports: Anxiety, Depression Musculoskeletal: Reports: Arthritis Cancer: Reports: None Last Menstrual Period: menopause Other Pertinent Past Medical History: C SECTION X2, LASIK SURGERY, GB, TUBALBULGING DISK IN BACK - Surgical History General Surgical History: Reports: Tubal ligation, (x2), Cholecystectomy, Other ( LASIK SURGERY, BULGING DISK IN BACK) - Family History Family History: Reports: Unknown - Social History Smoking Status: Former smoker Hx Substance Use: No Alcohol Screening: None Physical Exam - Physical Exam Appearance: Well-appearing, No pain distress, Well-nourished Eyes: YAQUELIN, EOMI, Conjunctiva clear ENT: Ears normal, Nose normal, Oropharynx normal Respiratory: Airway patent, Breath sounds clear, Breath sounds equal, Respirations nonlabored Cardiovascular: RRR, Pulses normal, No rub, No murmur GI/: Soft, Nontender, No masses, Bowel sounds normal, No Organomegaly Musculoskeletal: Normal strength, ROM intact, No edema, No calf tenderness Skin: Warm, Dry, Normal color Neurological: Sensation intact, Motor intact, Reflexes intact, Cranial nerves intact, Alert, Oriented Psychiatric: Affect appropriate, Mood appropriate Interpretation - Buffer Automatic Rate: Normal Rhythm: Sinus Ectopy: None - EKG Interpretation Rate: Normal Rhythm: Sinus Rate: Normal Rhythm: Sinus Critical Care Note - Critical Care Note Total Time (mins): 0 Course - Course Hematology/Chemistry: 06/14/18 14:40 06/14/18 14:40 Orders, Labs, Meds: Lab Review 06/14/18 06/14/18 06/14/18 14:40 14:40 14:40 WBC 8.17 RBC 4.40 Hgb 12.8 Hct 39.0 MCV 88.6 MCH 29.1 MCHC 32.8 RDW Coeff of Taylor 12.5 Plt Count 209 Immature Gran % (Auto) 0.2 Neut % (Auto) 56.7 Lymph % (Auto) 24.5 [place] % (Auto) 10.8 H Eos % (Auto) 6.9 Baso % (Auto) 0.9 Immature Gran # (Auto) 0.0 Neut # (Auto) 4.6 Lymph # (Auto) 2.0 [place] # (Auto) 0.9 Eos # (Auto) 0.6 Baso # (Auto) 0.1 PT 9.9 INR 0.99 APTT 23.9 Sodium 138.0 Potassium 4.27 Chloride 98.1 Carbon Dioxide 32.5 H Anion Gap 11.67 BUN 14.9 Creatinine 0.54 L Estimated GFR (MDRD) 116.00 BUN/Creatinine Ratio 27.59 Glucose 92.5 Calcium 10.13 Total Bilirubin 0.35 AST 45.1 H ALT 33.1 Alkaline Phosphatase 64.0 Total Creatine Kinase 276.7 H CK-MB (CK-2) 13.600 H* CK-MB (CK-2) % 4.9100 Troponin I < 0.012 Total Protein 7.46 Albumin 4.15 Globulin 3.31 Albumin/Globulin Ratio 1.25 Orders Category Date Time Status EKG-(ED ONLY) Stat CARDIO 06/14/18 15:15 Completed ED IV/MEDIPORT/POWERPORT .ONCE EMERGENCY 06/14/18 14:39 Active CBC W/ AUTO DIFF Stat LAB 06/14/18 14:40 Completed COMPREHENSIVE METABOLIC PANEL Stat LAB 06/14/18 14:40 Completed CREATINE KINASE Stat LAB 06/14/18 14:40 Completed PARTIAL THROMBOPLASTIN TIME Stat LAB 06/14/18 14:40 Completed PT WITH INR Stat LAB 06/14/18 14:40 Completed TROPONIN I Stat LAB 06/14/18 14:40 Completed 0.9 % Sodium Chloride [Saline Flush] MEDS 06/14/18 14:38 Active 1 syr IVF PRN PRN Aspirin [Aspirin Chewable] MEDS 06/14/18 14:39 Discontinued 324 mg PO ONCE STA Metoprolol Tartrate [Lopressor] MEDS 06/14/18 15:54 Stat 5 mg IVP ONCE STA CHEST, 1V AP ONLY Stat RADS 06/14/18 14:39 Completed Medications Generic Name Dose Route Start Last Admin Trade Name Freq PRN Reason Stop Dose Admin Sodium Chloride 1 syr 06/14/18 14:38 06/14/18 15:17 Saline Flush IVF 1 syr PRN PRN Administration To flush IV Discontinued Medications Generic Name Dose Route Start Last Admin Trade Name Randy PRN Reason Stop Dose Admin Aspirin 324 mg 06/14/18 14:39 06/14/18 15:17 Aspirin Chewable PO 06/14/18 14:40 324 mg ONCE STA Administration Metoprolol Tartrate 5 mg 06/14/18 15:54 Lopressor IVP 06/14/18 15:55 ONCE STA Vital Signs: Temp Pulse Resp BP Pulse Ox 06/14/18 14:14 97.1 F L 96 H 20 165/89 H 94 L SRINIVASA Risk Score SRINIVASA Risk Score: Risk Score Odds of by 30D 0 0.1 (0.1-0.2) 1 0.3 (0.2-0.3) 2 0.4 (0.3-0.5) 3 0.7 (0.6-0.9) 4 1.2 (1.0-1.5) 5 2.2 (1.9-2.6) 6 3.0 (2.5-3.6) 7 4.8 (3.8-6.1) Departure - Departure Time of Disposition: 16:02 Disposition: TSF SHORT-TRM HOSP Discharge Problem: Chest pain Condition: Good Pt referred to PMD for follow-up: Yes IPMP verified?: No Allergies/Adverse Reactions: Allergies Latex, Natural Rubber Adverse Reaction (Verified 06/14/18 14:21) metformin Adverse Reaction (Verified 06/14/18 14:21) Penicillins Adverse Reaction (Verified 06/14/18 14:21) Home Medications: Ambulatory Orders Fluoxetine HCl [Prozac] 20 mg PO BID 08/10/13 Gabapentin 600 mg PO QID 08/10/13 Ibuprofen 800 mg PO QID 08/10/13 Multivitamin 1 cap PO DAILY 08/10/13 Quetiapine Fumarate [Seroquel Xr] 300 mg PO BEDTIME 08/10/13 Ranitidine HCl [Zantac] 300 mg PO BIDAC 08/10/13 Montelukast Sodium [Singulair] 10 mg PO BEDTIME 04/07/16 Simvastatin 20 mg PO BEDTIME #30 tablet 12/12/16 Linagliptin [Tradjenta] 5 mg PO DAILY 01/10/17 Lactobacillus 3/Fos/Pantethine [Probiotic & Acidophilus Cap] 2 each PO DAILY 04/29 Bupropion HCl [Wellbutrin Xl] 200 mg PO BID 10/13/17 Oxycodone HCl/Acetaminophen [Oxycodon-Acetaminophen 2.5-325] 1 each PO BID 10/13 Albuterol Sulfate [Ventolin Hfa] 2 puff IH Q4-6H PRN 06/14/18 Ascorbic Acid [Vitamin C] 1,000 mg PO DAILY 06/14/18 Cholecalciferol (Vitamin D3) [Vitamin D3] 4,000 unit PO DAILY 06/14/18
== END 2018-06-14 17:00 | disposition short-term general hospital (02) ==
LOC: ED 14:13
DX: R07.9 Chest pain, unspecified (principal); R05 Cough; E78.5 Hyperlipidemia, unspecified; E11.9 Type 2 diabetes mellitus without complications; I10 Essential (primary) hypertension; K21.9 Gastro-esophageal reflux disease without esophagitis; E66.9 Obesity, unspecified; Z79.899 Other long term (current) drug therapy; R74.8 Abnormal levels of other serum enzymes
CPT/HCPCS: 36415; 80053; 82550; 82553; 84484; 85025; 85610; 85730; 93005; 93010; 96374; 99285

== ENCOUNTER 2018-08-10 13:05 | Inpatient (IN) | payer OTHER ==
--- NOTE | 2018-08-10 15:03 | CT ---
EXAM: CT of the chest without contrast History: Chest pain and left arm pain. Comparison: Chest CT 01/10/2017 Technique: Multiplanar CT images through the thorax were obtained without the administration of IV c ontrast Findings: Heart size is upper limits of normal. Trace anterior pericardial fluid. Coronary calcifi cations. No thoracic aortic aneurysm. No pathologically enlarged thoracic lymph nodes. There is fo angus enlargement of the left thyroid lobe which could indicate underlying thyroid nodules. No consolidation. No pleural fluid and no pneumothorax. No change in the bibasilar subsegmental ate lectasis. No suspicious lung masses or lung nodules. Within the visualized upper abdomen, status post cholecystectomy. 2 mm left renal calculus. No acut e osseous abnormalities. Possible cirrhotic configuration of the liver. Impression: 1. No acute intrathoracic process. 2. Coronary artery disease. 3. Trace anterior pericardial fluid. 4. Possible cirrhotic architecture of the liver. 5. No change in the bibasilar subsegmental atelectasis. 6. Possible left thyroid nodule. Recommend further evaluation with thyroid ultrasound.
--- NOTE | 2018-08-10 17:25 | CT ---
EXAM: CTA thorax HISTORY: Chest pain elevated D-dimer COMPARISON: CT scan chest 08/10/2018 FINDINGS: Contiguous axial images obtained through the thorax following intravenous contrast utilizi ng 3-mm collimation. Sagittal and coronal reconstructions were imaged and reviewed.. The LAD of the thyroid is prominent. Subcentimeter prevascular pretracheal nodes. The heart is top normal in size with trace pericardial effusion. There is coronary artery calcification.. There is no evidence of pulmonary embolus. Scarring and/or atelectasis is seen at the left lung base and within the lingula. The visualized adrenal glands are normal.. Bone windows reveals no evidence of lytic or blastic le sions. IMPRESSION: No evidence pulmonary embolus. Left basilar atelectasis and/or scarring.
--- NOTE | 2018-08-10 17:40 | ED.PDOC ---
General ED Provider: Dr. LILIANE HINDS Chief Complaint: Chest Pain Stated Complaint: CHEST PAIN DULL THIS AFTERNOON Time Seen by Physician: 13:13 Mode of Arrival: Walk-In Information Source: Patient Exam Limitations: No limitations Primary Care Provider: AUBREY ESTEBAN Nursing and Triage Documentation Reviewed and Agree: Yes Does patient meet sepsis criteria?: No If yes, has appropriate treatment been initiated?: No System Inflammatory Response Syndrome: Not Applicable Sepsis Protocol: For patient's 13 years and over: Temp is 96.8 and below OR 101 and greater Pulse >90 BPM Resp >20/minute Acutely Altered Mental Status Are patient's symptoms suggestive of a new infection, such as: -Pneumonia -Skin, Soft Tissue -Endocarditis -UTI -Bone, Joint Infection -Implantable Device -Acute Abdominal Infection -Wound Infection -Meningitis -Blood Stream Catheter Infection -Unknown Review of Systems - Review Of Systems Constitutional: Reports: No symptoms Eyes: Reports: No symptoms Ears, Nose, Mouth, Throat: Reports: No symptoms Respiratory: Reports: No symptoms Cardiac: Reports: Chest pain GI: Reports: No symptoms : Reports: No symptoms Musculoskeletal: Reports: No symptoms Skin: Reports: No symptoms Neurological: Reports: No symptoms Endocrine: Reports: No symptoms Hematologic/Lymphatic: Reports: No symptoms All Other Systems: Reviewed and Negative Past Medical History - Past Medical History Previously Healthy: Yes Endocrine: Reports: DM 2, Dyslipidemia Cardiovascular: Reports: Hypertension Respiratory: Reports: COPD Hematological: Reports: None Gastrointestinal: Reports: GERD Genitourinary: Reports: None Neuro/Psych: Reports: Anxiety, Depression Musculoskeletal: Reports: Arthritis Cancer: Reports: None Last Menstrual Period: unknown Other Pertinent Past Medical History: C SECTION X2, LASIK SURGERY, GB, TUBALBULGING DISK IN BACK - Surgical History General Surgical History: Reports: Tubal ligation, (x2), Cholecystectomy, Other ( LASIK SURGERY, BULGING DISK IN BACK) - Family History Family History: Reports: Unknown - Social History Smoking Status: Former smoker Hx Substance Use: No Alcohol Screening: None Physical Exam - Physical Exam Appearance: Well-appearing, No pain distress, Well-nourished Eyes: YAQUELIN, EOMI, Conjunctiva clear ENT: Ears normal, Nose normal, Oropharynx normal Respiratory: Airway patent, Breath sounds clear, Breath sounds equal, Respirations nonlabored Cardiovascular: RRR, Pulses normal, No rub, No murmur GI/: Soft, Nontender, No masses, Bowel sounds normal, No Organomegaly Musculoskeletal: Normal strength, ROM intact, No edema, No calf tenderness Skin: Warm, Dry, Normal color Neurological: Sensation intact, Motor intact, Reflexes intact, Cranial nerves intact, Alert, Oriented Psychiatric: Affect appropriate, Mood appropriate Interpretation - Radiology Interpretation Radiology Interpretation By: Radiologist Radiology Results: No acute changes - Building Manager Rate: Normal Rhythm: Sinus Ectopy: None - EKG Interpretation Rate: Normal Rhythm: Sinus Ectopy: None Buckley: NL ST Segment: Normal Physician Notification - Case Discussed Physician Notified: KARIN Time of Notification: 17:41 (ADMITT GET CONSULT) Admit To: Inpatient Critical Care Note - Critical Care Note Total Time (mins): 0 Course - Course Hematology/Chemistry: 08/10/18 14:05 08/10/18 14:05 Orders, Labs, Meds: Lab Review 08/10/18 08/10/18 08/10/18 14:05 14:05 14:05 WBC 8.43 RBC 4.40 Hgb 13.2 Hct 39.4 MCV 89.5 MCH 30.0 MCHC 33.5 RDW Coeff of Taylor 12.8 Plt Count 221 Immature Gran % (Auto) 0.4 Neut % (Auto) 55.2 Lymph % (Auto) 27.6 [place] % (Auto) 11.0 H Eos % (Auto) 5.1 Baso % (Auto) 0.7 Immature Gran # (Auto) 0.0 Neut # (Auto) 4.7 Lymph # (Auto) 2.3 [place] # (Auto) 0.9 Eos # (Auto) 0.4 Baso # (Auto) 0.1 PT 9.5 INR 0.95 APTT 23.8 L D-Dimer (Manual) Sodium 136.5 Potassium 4.22 Chloride 96.9 L Carbon Dioxide 31.1 H Anion Gap 12.72 BUN 18.8 H Creatinine 0.59 L Estimated GFR (MDRD) 105.00 BUN/Creatinine Ratio 31.86 Glucose 105.3 Calcium 9.43 Total Bilirubin 0.34 AST 35.1 ALT 29.7 Alkaline Phosphatase 87.9 Total Creatine Kinase 234.3 H CK-MB (CK-2) 10.100 H* CK-MB (CK-2) % 4.3100 Troponin I < 0.012 Total Protein 7.31 Albumin 4.51 Globulin 2.80 Albumin/Globulin Ratio 1.61 08/10/18 14:30 WBC RBC Hgb Hct MCV MCH MCHC RDW Coeff of Taylor Plt Count Immature Gran % (Auto) Neut % (Auto) Lymph % (Auto) [place] % (Auto) Eos % (Auto) Baso % (Auto) Immature Gran # (Auto) Neut # (Auto) Lymph # (Auto) [place] # (Auto) Eos # (Auto) Baso # (Auto) PT INR APTT D-Dimer (Manual) 806.44 Sodium Potassium Chloride Carbon Dioxide Anion Gap BUN Creatinine Estimated GFR (MDRD) BUN/Creatinine Ratio Glucose Calcium Total Bilirubin AST ALT Alkaline Phosphatase Total Creatine Kinase CK-MB (CK-2) CK-MB (CK-2) % Troponin I Total Protein Albumin Globulin Albumin/Globulin Ratio Orders Category Date Time Status EKG-(ED ONLY) Stat CARDIO 08/10/18 13:42 Completed NPO REMINDER: IMAGING ONCE CARE 08/10/18 16:19 Active CBC W/ AUTO DIFF Stat LAB 08/10/18 14:05 Completed COMPREHENSIVE METABOLIC PANEL Stat LAB 08/10/18 14:05 Completed CREATINE KINASE Stat LAB 08/10/18 14:05 Completed D-DIMER Stat LAB 08/10/18 14:30 Completed PARTIAL THROMBOPLASTIN TIME Stat LAB 08/10/18 14:05 Completed PT WITH INR Stat LAB 08/10/18 14:05 Completed TROPONIN I Stat LAB 08/10/18 14:[address] CHEST PE PROTOCOL Stat RADS 08/10/18 16:[address] CHEST W/O CONTRAST Stat RADS 08/10/18 13:42 Completed Vital Signs: Temp Pulse Resp BP Pulse Ox 08/10/18 13:06 97.8 F 80 20 135/85 93 L SRINIVASA Risk Score SRINIVASA Risk Score: Risk Score Odds of by 30D 0 0.1 (0.1-0.2) 1 0.3 (0.2-0.3) 2 0.4 (0.3-0.5) 3 0.7 (0.6-0.9) 4 1.2 (1.0-1.5) 5 2.2 (1.9-2.6) 6 3.0 (2.5-3.6) 7 4.8 (3.8-6.1) Departure - Departure Time of Disposition: 17:41 Disposition: HOME SELF-CARE Discharge Problem: Chest pain Instructions: Chest Pain (ED) Condition: Good Pt referred to PMD for follow-up: Yes IPMP verified?: No Allergies/Adverse Reactions: Allergies Latex, Natural Rubber Adverse Reaction (Verified 08/10/18 13:17) metformin Adverse Reaction (Verified 08/10/18 13:17) Penicillins Adverse Reaction (Verified 08/10/18 13:17) Home Medications: Ambulatory Orders Fluoxetine HCl [Prozac] 40 mg PO BID 08/10/13 Gabapentin 600 mg PO QID 08/10/13 Ibuprofen 800 mg PO QID 08/10/13 Multivitamin 1 cap PO DAILY 08/10/13 Quetiapine Fumarate [Seroquel Xr] 300 mg PO BEDTIME 08/10/13 Ranitidine HCl [Zantac] 300 mg PO BIDAC 08/10/13 Montelukast Sodium [Singulair] 10 mg PO BEDTIME 04/07/16 Simvastatin 20 mg PO BEDTIME #30 tablet 12/12/16 Linagliptin [Tradjenta] 5 mg PO DAILY 01/10/17 Lactobacillus 3/Fos/Pantethine [Probiotic & Acidophilus Cap] 2 each PO DAILY 04/29 Bupropion HCl [Wellbutrin Xl] 200 mg PO BEDTIME 10/13/17 Albuterol Sulfate [Ventolin Hfa] 2 puff IH Q4-6H PRN 06/14/18 Ascorbic Acid [Vitamin C] 1,000 mg PO DAILY 06/14/18 Cholecalciferol (Vitamin D3) [Vitamin D3] 4,000 unit PO DAILY 06/14/18 Calcium Carbonate [Calcium] 600 mg PO DAILY 08/10/18
[2018-08-10] MEDS ORDERED: GI COCKTAIL PO STA (19:14)
[2018-08-10] MEDS ORDERED: PROTONIX PO STA (19:14)
[2018-08-10] MEDS: SODIUM CHLORIDE 1,000 ML IV SCH (19:26)
[2018-08-10 19:59] VITALS: BMI 50.8
[2018-08-10] MEDS ORDERED: WELLBUTRIN XL PO ONE (20:57)
[2018-08-10] MEDS ORDERED: ZOCOR ONE (20:58)
[2018-08-10] MEDS ORDERED: NON-FORMULARY MEDICATION (Simvastatin [Simvastatin] 20 MG) PO SCH (21:00)
[2018-08-10] MEDS ORDERED: SINGULAIR PO SCH (21:00)
[2018-08-10] MEDS ORDERED: WELLBUTRIN XL PO SCH (21:00)
[2018-08-10] MEDS: NEURONTIN PO SCH (21:04)
[2018-08-10] MEDS: PROZAC PO SCH (21:04)
[2018-08-10] MEDS ORDERED: ATIVAN PO PRN (22:01)
[2018-08-10] MEDS ORDERED: MOTRIN PO STA (22:02)
[2018-08-10] MEDS: ATIVAN PO SCH (23:02)
[2018-08-11] MEDS: ZANTAC PO SCH ×2 (05:48→16:23)
[2018-08-11] MEDS: PROTONIX PO SCH ×2 (05:48→16:23)
[2018-08-11] MEDS ORDERED: MOTRIN PO STA (06:12)
[2018-08-11] MEDS: SODIUM CHLORIDE 1,000 ML IV SCH ×2 (07:22→07:45)
[2018-08-11] MEDS ORDERED: [UNRECOGNIZED DRUG - MIXTURE] PO SCH (09:00)
[2018-08-11] MEDS ORDERED: TRADJENTA PO SCH (09:00)
[2018-08-11] MEDS: PROZAC PO SCH (09:03)
[2018-08-11] MEDS: ATIVAN PO SCH (09:03)
[2018-08-11] MEDS: NEURONTIN PO SCH ×3 (09:03→16:23)
[2018-08-11] MEDS ORDERED: ATROPINE SULFATE PFS ONE (11:57)
[2018-08-11] MEDS ORDERED: DOBUTAMINE 500 MG-D5W 250 ML 250 ML IV ONE (11:57)
[2018-08-11] MEDS ORDERED: ATIVAN PO PRN (13:45)
--- NOTE | 2018-08-11 13:59 | CONS ---
DATE OF CONSULTATION: 08/10/18 - the patient was seen in Room 118. REASON FOR CONSULTATION: Chest pain. HISTORY OF PRESENT ILLNESS: 58-year-old white female came to the emergency room because of having some chest pressure, discomfort in the upper part of the precordial area on the left side with left shoulder pain across. The patient says she feels like gas building up, comes and goes for the past few days, nonexertional. No associated shortness of breath, sweating. REVIEW OF SYSTEMS: CONSTITUTIONAL: Weakness, fatigue. No night sweats. No malaise, lethargy. No fever or chills. HEENT: Eyes: No visual changes. No eye pain. No eye discharge. ENT: No sinus drainage. No epistaxis. No sinus pain. No sore throat. No odynophagia. No ear pain. No congestion. RESPIRATORY: No cough, no congestion. No hemoptysis. No shortness of breath. CARDIOVASCULAR: Chest pain, more like a pressure type of feeling on the left precordial area more localized towards upper part with left shoulder and across the shoulder pain. No associated shortness of breath or sweating. The patient's pain is nonexertional for several days. The patient says she has had similar type of pain off and on for the past several years and had several stress tests and echocardiograms were done. No angina symptoms. No CHF symptoms. No palpitations. No orthopnea. GASTROINTESTINAL: Positive for gas with bloating. Some reflux type of symptoms. No abdominal pain. No nausea or vomiting. No diarrhea or constipation. No hematemesis. No hematochezia. GENITOURINARY: No urgency. No frequency. No dysuria. No hematuria. No obstructive symptoms. No discharge. No pain. No significant abnormal bleeding. MUSCULOSKELETAL: No musculoskeletal pain. No joint swelling. NEUROLOGICAL: No headache. No neck pain. No syncope. No seizures. No dizziness. PSYCHIATRIC: Not anxious. No depression. No suicidal thoughts. No homicidal thoughts. SKIN: No rash. No lesions. No wounds. ENDOCRINE: No unexplained weight loss. No weight gain. HEMATOLOGIC/LYMPHATIC: No anemia. No purpura. No petechiae. No prolonged or excessive bleeding. No palpable lymph nodes. MEDICATIONS: Prozac 40 mg p.o. twice a day Gabapentin 600 mg q.i.d. Ibuprofen 800 mg q.i.d. Ranitidine 300 mg p.o. b.i.d. Simvastatin 20 mg p.o. at bedtime Tradjenta 5 mg p.o. Daily probiotic Wellbutrin 200 mg p.o. at bedtime Ventolin inhaler ALLERGIES: LATEX, METFORMIN, PENICILLIN PAST MEDICAL HISTORY: Hypertension Hyperlipidemia Diabetes mellitus Type 2 COPD, CPAP at night Bronchitis Pneumonia GERD Osteoarthritis DJD OCD Depression Anxiety PAST SURGICAL HISTORY: Cataracts Lasix eye surgery Cholecystectomy Hysterectomy SOCIAL/PERSONAL/FAMILY HISTORY: The patient has quit smoking in 2009. No alcohol abuse. No drug abuse. The patient says she is under a lot of stress. Her sister with cancer of the lung. She has two kids and they are both sick. Mother is sick, who is on dialysis but doing some better. PHYSICAL EXAMINATION: GENERAL: The patient is oriented to time, place and person. VITAL SIGNS: Temperature 97.8, pulse 80, respiratory rate 20, BP 135/85, pulse ox 93%. HEENT: Head normocephalic, atraumatic. Eyes: Extraocular muscles are intact. Pupils are equal, round and reactive to light and accommodation. Ears: No lesions. Nose appeared normal. Throat: No exudate or erythema. NECK: Supple. No JVD, no carotid bruit. No lymphadenopathy or thyromegaly. LUNGS: Decreased breath sounds but clear to auscultation. Percussion note normal. Chest symmetrical. HEART: PMI not palpable on auscultation. S1, S2, no S3. No murmur heard. No cyanosis or clubbing. No ascites. Pulses: Dorsalis pedis and posterior tibial pulses +2 bilaterally. ABDOMEN: Protuberant. Bowel sounds active. Bowel sounds active. No CVA tenderness. No mass felt. EXTREMITIES: No edema. Full range of motion of all extremities, equal. NEUROLOGIC: No focal deficit. Cranial nerves II through XII are grossly intact. No headache, no double vision or headache. SKIN: Not dry. Intact. Turgor - normal. LYMPHATIC: No palpable lymph nodes/no lymphedema. MUSCULOSKELETAL: Normal joints with no swelling. Muscle tone is normal. EKG: Sinus rhythm. No acute changes. Hemoglobin 13, hematocrit 39. WBC 8,400, normal differential. Potassium 4.2. Creatinine 0.5, BUN 18. GFR 105. CK-MB - total CK elevated 234 with CK-MB percentage 4.3. Troponin negative. D. dimer elevated to 806. CT scan of the chest for pulmonary embolus negative. ASSESSMENT: 1. CHEST PAIN, ETIOLOGY UNKNOWN. SO FAR CARDIAC MARKERS AND EKG NEGATIVE. TELEMETRY SHOWS SINUS RHYTHM, NO ST-T WAVE CHANGE. CHARACTER OF THE PAIN SEEMS TO BE ATYPICAL. 2. BMI OF 51, MASSIVE OBESITY. 3. HYPERTENSION. 4. DYSLIPIDEMIA. 5. GENERALIZED OSTEOARTHRITIS. RECOMMENDATIONS: 1. Telemetry. 2. Continue cardiac markers. 3. Continue EKG in the morning. 4. Continue telemetry. 5. Will do echo and Dobutamine stress echo. 6. Counseling for weight loss done. The patient is morbidly obese. Declined any bariatric referral. 7. Non HDL goal should be 100. 8. The patient will be given GI cocktail and Protonix 40 mg p.o. twice a day. The likely source of her pain could be reflux symptoms. CONDITION: Stable. MTDD
[2018-08-11 14:16] VITALS: BP 154/91; TEMP 98.4
[2018-08-11] MEDS ORDERED: BUPROPION HCL 200 MG PO SCH (15:00)
[2018-08-11] MEDS ORDERED: ZOCOR PO SCH (21:00)
--- NOTE | 2018-08-12 09:56 | ECHO2D ---
Date of Exam: 08/11/18 Ordering Physician: DR. SUBHA SINGLETON, HOSPITALIST Room #: 118 Reason for Echo: CHEST PAIN M-Mode Normal Adult Results LV Dimensions Normal Adult Results AoV Opening excursions >1.6 >1.6 LVEDD-base- 3.5-5.8 5.5 Ao root dimensions 2.0-3.7 3.8 LVESD-base- 3.1-4.6 L. Atrium dimensions 1.9-3.8 4.3 Post. Wall thickness 0.8-1.1 1.5 IV septum (thickness) 0.7-1.2 1.5 Post. Wall excursion 0.72-1.3 NORMAL Septal motion NORMAL Systolic motion R. Ventricular cavity 1.5-2.0 NORMAL LVEF 60% 63% Paradoxical septal wall motion NORMAL 2-D : 2-D M Mode Echocardiogram was performed using apical four chamber and left parasternal long and short axis views. Mitral, tricuspid and aortic valves appear to be normal. Contractility of the left ventricle seems to be normal, so is the cavity size. Enlarged Left atrial cavity. Aortic root appears to be normal. There is no pericardial effusion. There is no thrombus noted in the left ventricular or left aortic cavity. No mitral valve prolapse noted. Unable to visualize tricuspid and pulmonary valves. M-MODE: MV: NORMAL AV: NORMAL TV: UNABLE TO VISUALIZE PV: UNABLE TO VISUALIZE CHAMBER SIZE: ENLARGED LEFT ATRIAL CAVITY WALL MOTION: NORMAL PERICARDIUM: NORMAL INTERPRETATION: 1. LEFT VENTRICULAR HYPERTROPHY (MODERATE) WITH ENLARGED LEFT ATRIAL CAVITY 2. NORMAL LEFT VENTRICULAR CONTRACTILITY 3. DIFFICULT ECHO--BODY HABITUS MTDD
--- NOTE | 2018-08-13 11:32 | CONS ---
DATE OF SERVICE: 08/11/18 CONSULT FOLLOWUP SUBJECTIVE: The patient's condition is stable. No chest pain. The patient does not have any symptoms of CHF or coronary insufficiency. She is up and about. PHYSICAL EXAMINATION: HEENT: Head normocephalic, atraumatic. Eyes: Extraocular muscles are intact. Pupils are equal, round and reactive to light and accommodation. Ears: No lesions. Nose appeared normal. Throat: No exudate or erythema. NECK: Supple. No JVD, no carotid bruit. No lymphadenopathy or thyromegaly. LUNGS: Clear to auscultation. Percussion note normal. Chest symmetrical. HEART: S1, S2, no S3. No murmurs. No cyanosis or clubbing. No ascites. Pulses: Dorsalis pedis and posterior tibial pulses +1 to +2 bilaterally. ABDOMEN: Soft. Nontender. Bowel sounds active. No CVA tenderness. No mass felt. EXTREMITIES: No edema. Full range of motion of all extremities, equal. NEUROLOGIC: No focal deficit. Cranial nerves II through XII are grossly intact. No headache, no double vision or headache. SKIN: Not dry. Intact. Turgor - normal. LYMPHATIC: No palpable lymph nodes/no lymphedema. MUSCULOSKELETAL: Normal joints with no swelling. Muscle tone is normal. The patient had Dobutamine stress echo done at one of the [facility] in June 2018 which was negative for ischemia. Echo was done today which showed LVH with normal LV contractility and enlarged LA cavity. Explained the findings to the patient. The patient is strongly advised to followup with the primary care. The patient is morbidly obese. Bariatric referral declined for any weight loss program. The patient had multiple echoes and stress echoes done in the past, practically all were negative for ischemia. The patient's pain seems to be GERD. Antireflex treatment discussed. This was discussed with attending. CONDITION: Stable. MTDD
--- NOTE | 2018-08-13 11:34 | CONS ---
BILLING 08/10/18 LEVEL 5 - ADMISSION 08/11/18 INTERMEDIATE MTDD
--- NOTE | 2018-08-18 10:44 | SSS ---
DATE OF SERVICE: 08/10/18 (ADMIT) 08/11/18 (DISCHARGE) SOURCE OF HISTORY: The patient; emergency room notes on triage. CHIEF COMPLAINT/HISTORY OF PRESENT ILLNESS: Left upper chest pain and left arm. The patient claims to have had sensation of heaviness in the left upper anterior chest and left arm four days prior to presentation to the emergency room 08/06/18. She went to her PCP on the same day and was prescribed Hydrochlorothiazide in addition to her blood pressure medication. She claimed the pain was better or resolved. The blood pressure did rise or elevate on 08/07/18 and the chest pain has returned. The pain was described as intermittent with no diaphoresis, no nausea. The patient's workup in the emergency room according to the ER doctor was negative for any acute myocardial injury however he felt the patient probably would best be served by admitting her to the hospital and continued workup as well as the stress echocardiogram the next day by the video recorder mechanic. I then did advise him to add it in her orders to consult Dr. Godwin, the video recorder mechanic. The patient was seen in the emergency room 06/14/18 because of chest pain. Chemistries showed elevated total CK at 2076.7 and CK-MB at 33.600. Troponin however is normal less than 0.012. Electrolytes were normal. Chest x-ray was unremarkable except for a subtle acute pulmonary vascular congestion. She was admitted . Total kinase was 188 and CK-MB was 9.9. CK 2% was 5.26. Troponin is less than 0.0100. The repeat troponin is still normal 0.0140. Admission for 12/10/16 was for chest pain. She had another admission one month after that 01/10/17 for left lower lobe pneumonia. Total creatinine kinase was 509 and the CK-MB is 20.2% with 3.96 troponin less than 0.0100. The patient had ear infection 12/2016. Lasik surgery 2013, cataracts 2013, hypertension, COPD and also bronchitis, pneumonia 2016, obstructive sleep apnea on CPAP, previous cholecystectomy, Diabetes Mellitus Type 2, had psychiatric problem, OCD , seen by a psychiatrist about one month ago, cholecystectomy, Cesearean section times two. FAMILY HISTORY: Sister had heart disease with CABG. Some members of the family had a stroke about age 60, father had lung carcinoma, 27 years ago. Mother had diabetes and a stroke. PERSONAL/FAMILY HISTORY/SOCIAL HISTORY: The patient is , resides with her . She use to smoke but stopped some time ago. MEDICATIONS: (prior to this admission) List of medications were checked. I have the list of medications from the drugstore that she subscribed to. She has a list of medications that we could come up with after reviewing the medications at home, the bottles and also the list from the pharmacy. Zoloft 300 mg at bedtime, Tradjenta 5 mg every day, Ibuprofen 800 mg tablet four times a day, Gabapentin 300 mg capsule, two capsules four times a day, Fluoxetine 20 mg capsule two capsules daily, Ranitidine 300 mg twice a day, Simvastatin 20 mg daily, Lorazepam 1 mg every 8 hours as needed, Singulair 10 mg tablet daily, Losartan 100 mg tablet daily, Metoprolol Tartrate 100 mg tablet daily, Hydrochlorothiazide 25 mg daily, Wellbutrin 200 mg b.i.d. and the patient had reduced it to one a day, Albuterol two puffs q.4-6hr p.r.n.. This medication was in the patient's purse. The Wellbutrin was prescribed by Sameer Beard. The patient, from [facility] had listed Tramadol as a medication, listed as p.r.n. every 6 hours #120 prescribed by Corina Vo. Tramadol was not given while in the hospital as well as the Ibuprofen. She takes Simvastatin occasionally since she believes it is not working. Bupropion was not given because of the chest pain history and Tramadol because of the use of Fluoxetine. Old/present records reviewed Office records reviewed. ALLERGIES: LATEX, NATURAL RUBBER, METFORMIN AND PENICILLIN. REVIEW OF SYSTEMS: CONSTITUTIONAL: The patient has no fever, no chills. Alert. No fatigue. 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 Denies any ataxia. VISUAL: Denies any blurred vision, double vision or transient loss of vision. AUDITORY: Hearing is adequate. No tinnitus. No pain or drainage. RESPIRATORY: The patient has no cough, no shortness of breath and no history of hemoptysis. CARDIOVASCULAR: The patient did complain of chest fullness in the left upper chest and heaviness of the left arm. No accomopanied diaphoresis or nausea. GI: Appetite is good. No dysphagia. No abdominal pain. No change in bowel habits. : Denies any pain on urination or urgency. INTEGUMENT: Denies any rash or pruritus. No spontaneous ecchymosis. MUSCULOSKELETAL: The patient does have some joint pains taking Ibuprofen. ENDOCRINE: Diabetes mellitus with a markedly elevated BMI 50.8. No polydipsia or polyuria. HEMATOLOGY: Denies any history of prolonged bleeding, spontaneous bleeding or ecchymosis. PSYCHIATRIC: Appears to be adequate and normal. The patient is alert and cooperative. PHYSICAL EXAMINATION: GENERAL/APPEARANCE/VITALS: We have a 58-year-old female admitted to the hospital because of left upper anterior chest discomfort or pressure as well as left arm. This was not accompanied by any nausea or diaphoresis or anorexia. No shortness of breath with this. This patient had pain previously and had workup on 06/15/18 at [facility] and was negative on testing. The patient was seen at the emergency room at this facility initially. There was a note of TSF - I don't know whether it is to transfer to secondary facility. The patient did have testing at [facility] on 06/15/18. This patient also had an elevated CK plus MB since 2017. It always had been elevated but the troponin always had been normal. Vital signs on admission: Temperature 97.8 tympanic, pulse 80, blood pressure 135/85 and respiratory rate 20, oxygen saturation 93 on room air. Height 5'7" weighing 326 lbs and 9.6 ozs. BMI is 50.8. HEENT: Head is unremarkable. Scalp: No active dermatitis. Face is symmetrical and equal with no facial weakness. She denies any tenderness in the frontal or maxillary sinus areas to palpation and/or pressure. Eyes - pupils equal, round and reactive. Mouth is unremarkable. NECK: No masses, no tenderness, no bruit. No rigidity. CVS: Chest essentially symmetrical and equal. Heart is audible, regular with good tones, no murmur. RS: Lungs - breath sounds are heard on both sides. No rales or wheezing but diminished. GI: Abdomen markedly pendulous, protuberant. No significant tenderness. Bowel sounds present. LOWER EXTREMITIES: No significant edema. Posterior tibials absent. UPPER EXTREMITIES: Symmetrical and equal. DIAGNOSES: 1. LEFT UPPER ANTERIOR CHEST OPPRESSION AND LEFT ARM HEAVINESS, ETIOLOGY UNDETERMINED. 2. HISTORY OF HYPERTENSION. 3. MARKEDLY ELEVATED BMI. 4. HISTORY OF CHEST PAIN WITH NEGATIVE WORKUP AT [facility] 06/15/18. HISTORY OF CHEST PAIN ADMITTED 12/10/16. 5. HISTORY OF PNEUMONIA ADMITTED 01/10/17. 6. HISTORY OF DIABETES MELLITUS TYPE 2. 7. HISTORY OF ALLERGY LATEX, METFORMIN AND PENICILLIN 8. HISTORY OF OBSTRUCTIVE SLEEP APNEA. 9. HISTORY OF COPD. 10. HISTORY OF GERD. 11. HISTORY OF DEPRESSION. 12. HISTORY OF ARTHRITIS. 13. HISTORY OF SECTION TIMES TWO. 14. HISTORY OF TUBAL LIGATION. 15. LASIK SURGERY. 16. CHOLECYSTECTOMY. 17. CATARACT SURGERY. HOSPITAL COURSE: The patient was seen by Dr. Godwin on consultation. He did an echocardiogram showing an ejection fraction of 63%. No motility problems of the heart. They scheduled her for a Dobutamine stress and wanting to have the results from the [facility] which was done 06/15/18. The results obtained were negative so he did not pursue doing a Dobutamine stress. He said she can go home from the standpoint of the heart. This patient at the time of discharge was alert, ambulatory with movement of all extremities. The lungs were clear. The heart was audible and regular with good tones and no chest pain. I had reviewed the medication with her and reconciled as best as I can with list of medication that she had and the bottles of medication as well as the medication from the pharmacy [facility]. She was advised to see her primary care provider tomorrow, Corina Vo. FINAL DIAGNOSES: 1. Chest pain, left upper chest and left arm heaviness, noncardiac. 2. Diabetes mellitus, controlled. A1C 5.68. 3. Elevated D. dimer - negative PE protocol CT, 806.44. 4. Insulin resistant syndrome, insulin level 54.6. 5. Markedly elevated BMI 50.8. 6. Persistently elevated CK-MB since 2017. RECOMMENDATIONS: Again this patient was repeatedly advised to see her primary care provider the next day in order to reconcile all her medications. The idea of bariatric surgery. I told her she can discuss that with her primary care provider who can then make contact if and when that is feasible. NAVJOT
--- NOTE | 2018-08-18 11:07 | CONS ---
DATE OF SERVICE: 08/11/18 CONSULT FOLLOWUP SUBJECTIVE: The patient was seen and examined. She didn't have any chest pain. Cardiovascular status was stable with no S3. No evidence of CHF or coronary insufficiency. Echo showed LVH with normal LV contractility. The patient had Dobutamine stress echo done in June at [facility], the reports reviewed. The patient's cardiovascular status is stable. REVIEW OF SYSTEMS: CONSTITUTIONAL: No night sweats. No fatigue, malaise, lethargy. No fever or chills. HEENT: Eyes: No visual changes. No eye pain. No eye discharge. ENT: No runny nose. No epistaxis. No sinus pain. No sore throat. No odynophagia. No ear pain. No congestion. RESPIRATORY: No cough, no congestion. No hemoptysis. CARDIOVASCULAR: No angina symptoms. No CHF symptoms. No atypical chest pain for CAD. No palpitations. No shortness of breath. GASTROINTESTINAL: No abdominal pain. No nausea or vomiting. No diarrhea or constipation. No hematemesis. No hematochezia. GENITOURINARY: No urgency. No frequency. No dysuria. No hematuria. No obstructive symptoms. No discharge. No pain. No significant abnormal bleeding. MUSCULOSKELETAL: No musculoskeletal pain. No joint swelling. No arthritis. NEUROLOGICAL: No headache. No neck pain. No syncope. No seizures. No dizziness. PSYCHIATRIC: Not anxious. No depression. No suicidal thoughts. No homicidal thoughts. SKIN: No rash. No lesions. No wounds. ENDOCRINE: No unexplained weight loss. No weight gain. HEMATOLOGIC/LYMPHATIC: No anemia. No purpura. No petechiae. No prolonged or excessive bleeding. No palpable lymph nodes. PHYSICAL EXAMINATION: HEENT: Head normocephalic, atraumatic. Eyes: Extraocular muscles are intact. Pupils are equal, round and reactive to light and accommodation. Ears: No lesions. Nose appeared normal. Throat: No exudate or erythema. NECK: Supple. No JVD, no carotid bruit. No lymphadenopathy or thyromegaly. LUNGS: Clear to auscultation. Percussion note normal. Chest symmetrical. HEART: S1, S2, no S3. No murmurs. No cyanosis or clubbing. No ascites. Pulses: Dorsalis pedis and posterior tibial pulses +1 to +2 bilaterally. ABDOMEN: Soft. Nontender. Bowel sounds active. No CVA tenderness. No mass felt. EXTREMITIES: No edema. Full range of motion of all extremities, equal. NEUROLOGIC: No focal deficit. Cranial nerves II through XII are grossly intact. No headache, no double vision or headache. SKIN: Not dry. Intact. Turgor - normal. LYMPHATIC: No palpable lymph nodes/no lymphedema. MUSCULOSKELETAL: Normal joints with no swelling. Muscle tone is normal. RECOMMENDATIONS: 1. Strongly advised to followup with primary care. 2. Strongly advised to lose weight, she is morbidly obese. CONDITION: Stable. MTDD
== END 2018-08-11 17:35 | disposition home or self-care (01) | DRG 638 ==
LOC: ED 13:05 → MEDSURG B 17:51
PROVIDERS: ADMIT General Practice; ATTEND General Practice
DX: E11.9 Type 2 diabetes mellitus without complications (principal); Z68.43 Body mass index [BMI] 50.0-59.9, adult; E88.81 Metabolic syndrome and other insulin resistance; I10 Essential (primary) hypertension; G47.33 Obstructive sleep apnea (adult) (pediatric); J44.9 Chronic obstructive pulmonary disease, unspecified; K21.9 Gastro-esophageal reflux disease without esophagitis
CPT/HCPCS: 36415; 80053; 82550; 82553; 82962; 83036; 83525; 84436; 84443; 84484; 85025; 85379; 85610; 85651; 85730; 86038; 86140; 86141; 86200; 86430; 93005; 93010; 99284